=== PATIENT | female | born 1935 | race Caucasian/White ===

== ENCOUNTER 2017-01-14 16:48 | Emergency (ER) | payer BC, OTHER ==
[2017-01-14 16:52] VITALS: BMI 34.0
--- NOTE | 2017-01-14 17:51 | PDOC ---
History of Present Illness - General History Source: Patient Exam Limitations: No Limitations - History of Present Illness Initial Comments: 01/14/17 18:15 Patient is an 82 y.o. female with a PMH of Atrial Fibrillation (controlled on Amirodiarone) who presents to our facility today following a mechanical fall this evening while stepping onto an elevated sidewalk. Patient states she fell on to her right side, scraping her R knee and hitting her head on the R side near her temporal bone. Patient denies any LOC, nausea, vomiting or vertigo. ROS is positive for "lightheadedness" however no vertigo, blurry vision, nausea or vomiting. Patient also c/o of R lower leg abrasion. Occurred: reports: just prior to arrival Severity: reports: mild Pain Location: reports: head, lower extremity Method of Injury: Yes: fall <Rosi Amin - Last Filed: 01/14/17 18:43> <Ignacia Frey - Last Filed: 01/14/17 19:06> - General Chief Complaint: Injury Stated Complaint: FALL, LIGHTHEADED, on Plavix Time Seen by Provider: 01/14/17 17:30 Past History - Past Medical History Cardiac Disorders: Yes (afib) Diabetes: Yes HTN: Yes Hypercholesterolemia: Yes - Surgical History Cardiac Surgery: Yes (stents x 4) - Psycho/Social/Smoking Cessation Hx Suicidal Ideation: No Smoking History: Never smoked Information on smoking cessation initiated: No Hx Alcohol Use: No Drug/Substance Use Hx: No Substance Use Type: None <Rosi Amin - Last Filed: 01/14/17 18:43> <Ignacia Frey - Last Filed: 01/14/17 19:06> - Past Medical History Allergies/Adverse Reactions: Allergies Allergy/AdvReac Type Severity Reaction Status Date / Time No Known Allergies Allergy Verified 01/14/17 16:52 Home Medications: Ambulatory Orders Amiodarone HCl [Cordarone -] 200 mg PO DAILY 01/16/16 Aspirin [ASA -] 81 mg PO DAILY 01/16/16 Clopidogrel Bisulfate [Plavix -] 75 mg PO DAILY 01/16/16 Hydrochlorothiazide [Hctz -] 12.5 mg PO DAILY 01/16/16 Insulin Glargine,Hum.rec.anlog [Lantus Solostar PEN (NF)] 20 units SQ HS Levothyroxine [Synthroid -] 175 mcg PO DAILY 01/16/16 Losartan Potassium [Cozaar -] 50 mg PO DAILY 01/16/16 Rosuvastatin Calcium [Crestor] 10 mg PO DAILY 02/03/16 Metformin HCl 500 mg PO DAILY 01/14/17 Review of Systems - Review of Systems Cardiac (ROS): Yes: Irregular Heart Rate, Lightheadedness, Other (H/o AFib, controlled, on Amiodarone) ABD/GI: Yes: Constipated Musculoskeletal: Yes: Muscle Pain Integumentary: Yes: Other (RLE Abrasion) Neurological: Yes: Headache All Other Systems: Reviewed and Negative <Rosi Amin - Last Filed: 01/14/17 18:43> *Physical Exam - Vital Signs Last Vital Signs Temp Pulse Resp BP Pulse Ox 98 F 64 18 106/64 98 01/14/17 16:50 01/14/17 16:50 01/14/17 16:50 01/14/17 16:50 01/14/17 16:50 - Physical Exam General Appearance: Yes: Nourished, Appropriately Dressed HEENT: positive: EOMI, JS Neck: positive: Tender, Trachea midline, Supple Respiratory/Chest: positive: Lungs Clear, Normal Breath Sounds Cardiovascular: positive: Regular Rhythm, Regular Rate, S1, S2 Gastrointestinal/Abdominal: positive: Normal Bowel Sounds, Soft Integumentary: positive: Normal Color, Other (RLE ventral superficial abrasion ) Neurologic: positive: gear hobber set up operator II-XII NML intact, Fully Oriented, Alert, Motor Strength 5/5, Other (B/L LE strength 5/5) <Rosi Amin - Last Filed: 01/14/17 18:43> - Vital Signs Last Vital Signs Temp Pulse Resp BP Pulse Ox 98 F 64 18 106/64 98 01/14/17 16:50 01/14/17 16:50 01/14/17 16:50 01/14/17 16:50 01/14/17 16:50 <Ignacia Frey - Last Filed: 01/14/17 19:06> Medical Decision Making - Medical Decision Making Patient signed out to Dr. Jo Rosenberg - awaiting imaging <Rosi Amin - Last Filed: 01/14/17 18:43> *DC/Admit/Observation/Transfer <Rosi Amin - Last Filed: 01/14/17 18:43> <Ignacia Frey - Last Filed: 01/14/17 19:06> Diagnosis at time of Disposition: Abrasion, Traumatic injury of head - Discharge Dispostion Disposition: HOME Condition at time of disposition: Improved - Patient Instructions Printed Discharge Instructions: DI for Closed Head Injury Additional Instructions: take tylenol 500mg every 6 hours as needed for pain. return for any nausea, vomiting, weakness confusion or any concerns. you can apply bacitracin topical antiobiotics cream to your knee. you were given a tetanus shot today so you are up to date with your tetanus.
--- NOTE | 2017-01-14 18:04 | PDOC ---
Attending Attestation - Resident Resident Name: EloisaRosi - ED Attending Attestation I have performed the following: I have examined & evaluated the patient, The case was reviewed & discussed with the resident, I agree w/resident's findings & plan, Exceptions are as noted - HPI HPI: 01/14/17 17:59 82 yo F with h/o HTN DM HLD on asa and plavix s/p trip and fall today. was walking and missed a step. fell forward, hit head on concrete. no loc. no neck or bakc pain. c/o headache, lightheaded, and right knee pain. had abrasion to right knee. ambulating without difficulty. no other ext pain. no mod afctors. no n/v or weakness since fall. - Physicial Exam PE: 01/14/17 18:00 on exam pt awake alert . right eye brow, with small eccymosis EOMI, no step off. no mildline cervical spine tenderness. lungs CTAB no wheeze no crackles. heart RRR no m/r.g abd soft NT. ext : right knee superifical abrasion, FROM. no laxity. right hip FROM, pelvis stable. left hip NT FROM. bilat upper ext NT FROM. no midline spinal tenderness. 5/5 all four ext. GCS 15 - Medical Decision Making 01/14/17 18:02 82 s/p trip and fall, on asa and plavix. plan ct head r/o ich, xray knee , tetanus, tylenol for pain. bacitracin to abrasion
[2017-01-14] MEDS ORDERED: TETANUS IMMUNE GLOBULIN 250 UNITS DISP.SYRIN IM ONE (18:06)
[2017-01-14] MEDS ORDERED: ACETAMINOPHEN 325 MG TABLET (FP) PO ONE (18:14)
[2017-01-14] MEDS ORDERED: BACITRACIN 0.9 GM PACKET ONE (18:32)
[2017-01-14] MEDS ORDERED: ACETAMINOPHEN 325 MG TABLET (FP) ONE (19:07)
--- NOTE | 2017-01-14 19:44 | PDOC ---
*Physical Exam - Vital Signs Last Vital Signs Temp Pulse Resp BP Pulse Ox 98 F 64 18 106/64 98 01/14/17 16:50 01/14/17 16:50 01/14/17 16:50 01/14/17 16:50 01/14/17 16:50 <Bev Darden - Last Filed: 01/14/17 20:26> - Vital Signs Last Vital Signs Temp Pulse Resp BP Pulse Ox 98 F 64 18 106/64 98 01/14/17 16:50 01/14/17 16:50 01/14/17 16:50 01/14/17 16:50 01/14/17 16:50 - Physical Exam Comments: 01/14/17 19:[address] Amin at 1900. This is an 82 yo female with h/o A-fib on ASA and Plavix who had a GLF today without LOC but did hit her head and c/o temporal headache at 10/10. Also initially c/o BLE weakness but has been walking well to the bathroom here while in the ED, unremarkable BLE neuro exam. Day team ordered x-ray to eval right knee pain (+ overlying abrasions), unremarkable. Awaiting CT head wo contrast. Received Tylenol PO prior to signout and will reeval pain level. Patient reported relief of knee pain to the point where she feels comfortable with discharge home with . CT head shows no acute intracranial pathology. Neuro exam within normal limits. Agree with closed head injury, mechanical GLF, and knee abrasion dx. <Jo Rosenberg - Last Filed: 01/14/17 21:59> ED Treatment Course - Medications Given in the ED: ED Medications Discontinued Medications Generic Name Dose Route Start Last Admin Trade Name Satishq PRN Reason Stop Dose Admin Acetaminophen 650 mg 01/14/17 18:14 01/14/17 19:06 Tylenol - PO 01/14/17 18:15 650 mg ONCE ONE Administration Tetanus Immune Globulin 250 units 01/14/17 18:06 01/14/17 19:02 Hypertet S-D 250 Units Syringe - IM 01/14/17 18:07 250 units .ONCE ONE Administration <Bev Darden - Last Filed: 01/14/17 20:26> - RADIOLOGY Radiograph Interpretation: 01/14/17 19:54 Xray R knee: No acute fractures or dislocations. X-ray R hip and pelvis: No acute fractures or dislocations. Head CT wo contrast: no acute intracranial pathology, no ICH. - Medications Given in the ED: ED Medications Discontinued Medications Generic Name Dose Route Start Last Admin Trade Name Shabnam PRN Reason Stop Dose Admin Acetaminophen 650 mg 01/14/17 18:14 01/14/17 19:06 Tylenol - PO 01/14/17 18:15 650 mg ONCE ONE Administration Tetanus Immune Globulin 250 units 01/14/17 18:06 01/14/17 19:02 Hypertet S-D 250 Units Syringe - IM 01/14/17 18:07 250 units .ONCE ONE Administration <Jo Rosenberg - Last Filed: 01/14/17 21:59> *DC/Admit/Observation/Transfer <Bev Darden - Last Filed: 01/14/17 20:26> - Discharge Dispostion Admit: No - Attestations Scribe Attestion: 01/14/17 21:58 I, Dr. Jo Rosenberg, attest that this document has been prepared under my direction and personally reviewed by me in its entirety. I further attest, that it accurately reflects all work, treatment, procedures and medical decision -making performed by me. <Jo Rosenberg - Last Filed: 01/14/17 21:59> Diagnosis at time of Disposition: Abrasion Head trauma Qualifiers: Encounter type: initial encounter Qualified Code(s): S09.90XA - Unspecified injury of head, initial encounter - Discharge Dispostion Disposition: HOME Condition at time of disposition: Improved - Referrals Referrals: Herb Mckeon MD [Primary Care Provider] - - Patient Instructions Printed Discharge Instructions: DI for Closed Head Injury Additional Instructions: take tylenol 500mg every 6 hours as needed for pain. return for any nausea, vomiting, weakness confusion or any concerns. you can apply bacitracin topical antiobiotics cream to your knee. you were given a tetanus shot today so you are up to date with your tetanus. Print Language: CZECH - Post Discharge Activity
[2017-01-14 20:41] VITALS: BP 123/89; PULSE 74; TEMP 97.8
== END 2017-01-14 20:41 | disposition home or self-care (01) ==
LOC: JER 16:48
PROC: 3E023GC Introduction of Other Therapeutic Substance into Muscle, Percutaneous Approach (ICD-10-PCS; principal; 2017-01-14)
DX: S09.90XA Unspecified injury of head, initial encounter (principal); S80.811A Abrasion, right lower leg, initial encounter; S80.211A Abrasion, right knee, initial encounter; K59.00 Constipation, unspecified; E11.9 Type 2 diabetes mellitus without complications; I10 Essential (primary) hypertension; E78.00 Pure hypercholesterolemia, unspecified; I48.91 Unspecified atrial fibrillation; W18.39XA Other fall on same level, initial encounter; Y93.89 Activity, other specified; Y92.410 Unspecified street and highway as the place of occurrence of the external cause
CPT/HCPCS: 70450-TC; 72170-TC; 73560-TC-RT; 96372; 99282-25; J1670

== ENCOUNTER 2017-02-08 01:15 | Emergency (ER) | payer OTHER ==
[2017-02-08] MEDS ORDERED: SODIUM CHLORIDE 250 ML IV STA (01:40)
[2017-02-08] MEDS ORDERED: morphine CARPU-JECT 2 MG/1 ML DISP.SYRIN IVPUSH ONE (01:40)
[2017-02-08] MEDS ORDERED: ONDANSETRON 4 MG/2 ML VIAL IVPB ONE (01:40)
--- NOTE | 2017-02-08 02:09 | PDOC ---
History of Present Illness - General Stated Complaint: HEADACHE, DIZZINESS, NAUSEA Time Seen by Provider: 02/08/17 01:24 History Source: Patient, Significant Other Exam Limitations: No Limitations - History of Present Illness Initial Comments: 02/08/17 02:03 82yo Female patient w/ PmHx: IDDM, Afib/flutter-controlled with Amiodarone, HTN , 3 cardiac stents- on Plavix presents to ED c/o Headache, dizziness, nausea for past several days. Patient report January 14 she was seen in this ED for head injury and discharged to home. Patient reports since this incident, she has not felt the same. Last BM: Yesterday normal. Patient denies any other complaints at this time. Timing/Duration: constant Severity: moderate Modifying Factors: worse with: cold therapy, eating, immobilization, medication , movement, rest, other Associated Symptoms: reports: headaches, nausea/vomiting. denies: denies symptoms, chest pain, cough, diaphoresis, fever/chills, loss of appetite, malaise, rash, seizure, shortness of breath, syncope, weakness, other Aspirin Received prior to arrival: Yes: provided at home. No: no aspirin today , unknown, 81 mg x 1, 81 mg x 2, 81 mg x 3, 81 mg x 4, 325 mg x 1, provided by EMS, provided by ED [facility] Contraindications(Core Measure): Yes: Plavix. No: Allergy, Other, Active Blding w/i 24 hrs., Receiving Warfarin Past History - Travel Traveled outside of the country in the last 30 days: No Close contact w/someone who was outside of country & ill: No - Past Medical History Allergies/Adverse Reactions: Allergies Allergy/AdvReac Type Severity Reaction Status Date / Time No Known Allergies Allergy Verified 02/08/17 02:43 Home Medications: Ambulatory Orders Amiodarone HCl [Cordarone -] 200 mg PO DAILY 01/16/16 Aspirin [ASA -] 81 mg PO DAILY 01/16/16 Clopidogrel Bisulfate [Plavix -] 75 mg PO DAILY 01/16/16 Hydrochlorothiazide [Hctz -] 12.5 mg PO DAILY 01/16/16 Insulin Glargine,Hum.rec.anlog [Lantus Solostar PEN (NF)] 20 units SQ HS Levothyroxine [Synthroid -] 175 mcg PO DAILY 01/16/16 Losartan Potassium [Cozaar -] 50 mg PO DAILY 01/16/16 Rosuvastatin Calcium [Crestor] 10 mg PO DAILY 02/03/16 Metformin HCl 500 mg PO DAILY 01/14/17 Cephalexin Monohydrate [Keflex -] 500 mg PO BID #20 capsule 02/08/17 Cardiac Disorders: Yes (afib) Diabetes: Yes HTN: Yes Hypercholesterolemia: Yes - Surgical History Cardiac Surgery: Yes (stents x 4) - Psycho/Social/Smoking Cessation Hx Suicidal Ideation: No Smoking History: Never smoked Hx Alcohol Use: No Drug/Substance Use Hx: No Substance Use Type: None Review of Systems - Review of Systems Able to Perform ROS?: Yes Is the patient limited Welsh proficient: No Constitutional: Yes: Weakness. No: Chills, Fever Respiratory: No: Cough, Shortness of Breath, Wheezing Cardiac (ROS): No: Chest Pain, Lightheadedness, Palpitations, Syncope, Chest Tightness ABD/GI: Yes: Nausea. No: Constipated, Diarrhea, Poor Appetite, Poor Fluid Intake, Rectal Bleeding, Vomiting, Abdominal cramping : No: Burning, Dysuria, Frequency, Flank Pain, Hematuria Musculoskeletal: Yes: Back Pain (Chronic back pain) Integumentary: No: Bruising, Erythema, Rash, Sweating Neurological: Yes: Headache, Weakness. No: Numbness, Paresthesia, Seizure, Tremors, Unsteady Gait, Ataxia, Dizziness All Other Systems: Reviewed and Negative *Physical Exam - Physical Exam General Appearance: Yes: Nourished, Appropriately Dressed. No: Apparent Distress, Mild Distress, Moderate Distress, Severe Distress HEENT: positive: EOMI, JS, Normal ENT Inspection, Normal Voice, Symmetrical, TMs Normal, Pharynx Normal. negative: Pharyngeal Erythema, Tonsillar Exudate, Tonsillar Erythema, Nasal Congestion, Rhinorrhea, Sinus Tenderness, TM Bulging, TM Dull, TM Erythema Neck: positive: Trachea midline, Supple. negative: Lymphadenopathy (R), Lymphadenopathy (L), Rigidity, Tender lateral, Tender midline Respiratory/Chest: positive: Lungs Clear, Normal Breath Sounds. negative: Chest Tender, Respiratory Distress, Accessory Muscle Use, Labored Respiration, Rapid RR, Rhonchi, Stridor, Wheezing Cardiovascular: positive: Regular Rhythm, Regular Rate Gastrointestinal/Abdominal: positive: Soft, Increased Bowel Sounds, Distended. negative: Tender, Guarding, Rebound, Tenderness Musculoskeletal: positive: Normal Inspection, Decreased Range of Motion. negative: CVA Tenderness, Vertebral Tenderness Extremity: positive: Normal Capillary Refill, Normal Inspection, Normal Range of Motion. negative: Pedal Edema, Swelling, Calf Tenderness, Erythema Integumentary: positive: Normal Color, Dry, Warm. negative: Erythema, Rash, Swelling Neurologic: positive: copy operator II-XII NML intact, Fully Oriented, Alert, Normal Mood/ Affect, Normal Response, Motor Strength 11/12 ED Treatment Course - LABORATORY CBC & Chemistry Diagram: 02/08/17 02:00 02/08/17 02:00 - RADIOLOGY Radiology Studies Ordered: Category Date Time Status HEAD CT WITHOUT CONTRAST [CT] Stat CT Scan 02/08/17 01:40 Ordered CHEST PA & LAT [RAD] Stat Radiology 02/08/17 01:40 Ordered *DC/Admit/Observation/Transfer Diagnosis at time of Disposition: Urinary tract infection Qualifiers: Urinary tract infection type: site unspecified Hematuria presence: without hematuria Qualified Code(s): N39.0 - Urinary tract infection, site not specified - Discharge Dispostion Disposition: HOME Condition at time of disposition: Stable Admit: No - Prescriptions Prescriptions: Cephalexin Monohydrate [Keflex -] 500 mg PO BID #20 capsule - Patient Instructions Printed Discharge Instructions: Urinary Tract Infection Additional Instructions: Follow up with your primary care provider. Take medications as prescribed. Drink plenty water. Rest. Print Language: SLOVAK
[2017-02-08 02:12] LABS: BASOPHIL 0.9 % (0-2.0); EOSINOPHIL 1.8 % (0-4.5); MCH 31.3 pg (25.7-33.7); MCHC 33.8 g/dl (32.0-36.0); MEAN CELL VOLUME 92.6 fl (80-96); MEAN PLT VOLUME 8.5 fl (7.5-11.1); NEUTROPHILS 62.9 % (42.8-82.8); PLATELET COUNT 170 K/MM3 (134-434); RDW 14.7 % (11.6-15.6); WHITE BLOOD COUNT 6.2 K/mm3 (4.0-10.0)
[2017-02-08 02:25] LABS: INR 1.09 (0.82-1.09)
[2017-02-08 02:39] LABS: URINE APPEARANCE CLOUDY; URINE BILIRUBIN NEGATIVE (NEGATIVE); URINE BLOOD NEGATIVE (NEGATIVE); URINE COLOR AMBER; URINE GLUCOSE (UA) NEGATIVE (NEGATIVE); URINE KETONE NEGATIVE (NEGATIVE); URINE NITRITE POSITIVE (NEGATIVE); URINE PROTEIN NEGATIVE (NEGATIVE); URINE UROBILINOGEN NEGATIVE mg/dL (0.2-1.0)
[2017-02-08 02:40] VITALS: TEMP 98.7; BMI 30.2
[2017-02-08 02:41] LABS: URINE LEUK ESTERASE 3+ (NEGATIVE)
[2017-02-08] MEDS ORDERED: morphine CARPU-JECT 4 MG/1 ML DISP.SYRIN ONE (02:53)
[2017-02-08] MEDS ORDERED: ONDANSETRON 4 MG/2 ML VIAL ONE (02:54)
[2017-02-08 02:56] LABS: URINE MUCUS RARE; URINE WBC 34 /hpf (3-5)
[2017-02-08 03:00] LABS: ALBUMIN 3.4 g/dl (3.4-5.0); ANION GAP 10 (8-16); BILIRUBIN,TOTAL 0.3 mg/dL (0.2-1.0); CALCIUM 8.7 mg/dL (8.5-10.1); CO2 30 mmol/L (21-32); CPK 116 IU/L (26-192); GLUCOSE,RANDOM 158 mg/dL (74-106); SGOT/AST 19 U/L (15-37); SGPT/ALT 34 U/L (12-78); TOT PROT 6.7 g/dl (6.4-8.2)
[2017-02-08 03:02] LABS: ALK PHOS 66 U/L (45-117); TROPONIN I < 0.02 ng/ml (0.00-0.05)
[2017-02-08] MEDS ORDERED: CEPHALEXIN MONOHYDRATE 500 MG CAPSULE (UD) PO ONE (04:12)
[2017-02-08] MEDS ORDERED: CEPHALEXIN MONOHYDRATE 250 MG CAPSULE (FP) ONE (04:20)
[2017-02-08 04:48] VITALS: BP 142/87; PULSE 76
--- NOTE | 2017-02-08 12:22 | EKG ---
Test Reason : Blood Pressure : / mmHG Vent. Rate : 061 BPM Atrial Rate : 277 BPM P-R Int : 000 ms QRS Dur : 090 ms QT Int : 380 ms P-R-T Axes : 083 -37 123 degrees QTc Int : 382 ms ATRIAL FLUTTER WITH VARIABLE A-V BLOCK LEFT AXIS DEVIATION CONSISTANT WITH LAFB POSSIBLE ANTERIOR INFARCT (CITED ON OR BEFORE 16-JAN-2016) ABNORMAL ECG WHEN COMPARED WITH ECG OF 16-JAN-2016 00:12, QUESTIONABLE CHANGE IN INITIAL FORCES OF ANTERIOR LEADS T WAVE INVERSION NO LONGER EVIDENT IN ANTERIOR LEADS QT HAS SHORTENED REPEAT EKG IF CLINICALLY INDICATED Confirmed by DAVY SILVERMAN MD ([id number]) on 02/08/2017 12:22:04 PM Referred By: Confirmed By:DAVY SILVERMAN MD
== END 2017-02-08 04:46 | disposition home or self-care (01) ==
LOC: JER 01:15
PROC: 3E033NZ Introduction of Analgesics, Hypnotics, Sedatives into Peripheral Vein, Percutaneous Approach (ICD-10-PCS; principal; 2017-02-08)
PROC: 3E033GC Introduction of Other Therapeutic Substance into Peripheral Vein, Percutaneous Approach (ICD-10-PCS; 2017-02-08)
DX: N39.0 Urinary tract infection, site not specified (principal); I25.10 Atherosclerotic heart disease of native coronary artery without angina pectoris; I10 Essential (primary) hypertension; Z95.5 Presence of coronary angioplasty implant and graft; I48.91 Unspecified atrial fibrillation; Z79.01 Long term (current) use of anticoagulants; E11.9 Type 2 diabetes mellitus without complications; Z79.4 Long term (current) use of insulin
CPT/HCPCS: 36415; 70450-TC; 71020-TC; 80053; 81003; 81015; 84484; 85025; 85610; 93005; 93010; 96374; 96375; 99281-25

== ENCOUNTER 2017-08-30 09:31 | Emergency (ER) | payer OTHER ==
[2017-08-30 09:45] VITALS: TEMP 98.8; BMI 31.9
--- NOTE | 2017-08-30 10:27 | PDOC ---
History of Present Illness - General Chief Complaint: Pain, Acute Stated Complaint: BODYACHES Time Seen by Provider: 08/30/17 10:25 - History of Present Illness Initial Comments: 08/30/17 10:29 82yo Female patient w/ PmHx: IDDM, Afib/flutter-controlled with Amiodarone, HTN , 3 cardiac stents- on Plavix presents to ED with upper and lower left quandrant abdominal pain for 2 days, 9/10, gen body aches and nausea for the past 2 weeks. Pain upon waking up today was worse than any other day. Lost 15lbs in a month. Blood glucose in controlled in the 150's. Denies vomiting, constipation or diarrhea Saw Dr. Chauhan last week who told her she would get a barium xray PCP: Dr. Mckeon Past History - Past Medical History Allergies/Adverse Reactions: Allergies Allergy/AdvReac Type Severity Reaction Status Date / Time No Known Allergies Allergy Verified 08/30/17 09:42 Home Medications: Ambulatory Orders Amiodarone HCl [Cordarone -] 200 mg PO DAILY 01/16/16 Aspirin [ASA -] 81 mg PO DAILY 01/16/16 Clopidogrel Bisulfate [Plavix -] 75 mg PO DAILY 01/16/16 Hydrochlorothiazide [Hctz -] 12.5 mg PO DAILY 01/16/16 Insulin Glargine,Hum.rec.anlog [Lantus Solostar PEN (NF)] 20 units SQ HS Levothyroxine [Synthroid -] 175 mcg PO DAILY 01/16/16 Losartan Potassium [Cozaar -] 50 mg PO DAILY 01/16/16 Rosuvastatin Calcium [Crestor] 10 mg PO DAILY 02/03/16 Metformin HCl 500 mg PO DAILY 01/14/17 Atorvastatin Ca [Lipitor] 80 mg PO HS 08/30/17 Cardiac Disorders: Yes (afib) COPD: No Diabetes: Yes HTN: Yes Hypercholesterolemia: Yes - Surgical History Cardiac Surgery: Yes (stents x 4) - Suicide/Smoking/Psychosocial Hx Smoking History: Never smoked Hx Alcohol Use: No Drug/Substance Use Hx: No Substance Use Type: None Review of Systems - Review of Systems Constitutional: Yes: See HPI HEENTM: No: Symptoms Reported Respiratory: No: Symptoms reported Cardiac (ROS): No: Symptoms Reported ABD/GI: Yes: See HPI, Abdominal Distended, Nausea. No: Abd. Pain w/ defecation , Blood Streaked Bowels, Constipated, Diarrhea, Difficulty Swallowing, Poor Appetite, Poor Fluid Intake, Rectal Bleeding : No: Symptoms Reported Musculoskeletal: No: Symptoms Reported Integumentary: No: Symptoms Reported Neurological: No: Symptoms reported All Other Systems: Reviewed and Negative *Physical Exam - Vital Signs Last Vital Signs Temp Pulse Resp BP Pulse Ox 98.8 F 83 19 119/76 95 08/30/17 09:42 08/30/17 09:42 08/30/17 09:42 08/30/17 09:42 08/30/17 09:42 - Physical Exam General Appearance: Yes: Nourished, Appropriately Dressed. No: Apparent Distress HEENT: positive: EOMI, JS, Normal ENT Inspection Respiratory/Chest: positive: Lungs Clear, Normal Breath Sounds. negative: Chest Tender, Respiratory Distress Cardiovascular: positive: Regular Rhythm, Regular Rate, S1, S2 Gastrointestinal/Abdominal: positive: Normal Bowel Sounds, Tender (Upper and lower left quandrant), Soft, Distended, Guarding Extremity: positive: Normal Capillary Refill, Normal Inspection, Normal Range of Motion Integumentary: positive: Normal Color, Dry, Warm Neurologic: positive: Fully Oriented, Alert, Normal Mood/Affect, Normal Response ED Treatment Course - LABORATORY CBC & Chemistry Diagram: 08/30/17 11:53 08/30/17 11:53 Medical Decision Making - Medical Decision Making 08/30/17 11:00 gastroparesis vs constipation vs obstruction Will send for labs and imaging 08/30/17 13:55 EKG: Atrial flutter with variable AV blck left axis deviation nonstpecific st and t abnormality Prolonged QT 08/30/17 18:30 Patient have left nephrolithiasis. Fluid, tramadol. ok to dc with follow up *DC/Admit/Observation/Transfer Diagnosis at time of Disposition: Left nephrolithiasis - Discharge Dispostion Disposition: HOME Condition at time of disposition: Improved Admit: No - Referrals - Patient Instructions Printed Discharge Instructions: Kidney Stones -- Adult Additional Instructions: Come back to the Er for any new, worsening or concerning symptom. Follow up with your primary care provider within 1-3 days. - Post Discharge Activity
--- NOTE | 2017-08-30 11:58 | PDOC ---
Attending Attestation - Resident Resident Name: Hermann Mcgill - ED Attending Attestation I have performed the following: I have examined & evaluated the patient, The case was reviewed & discussed with the resident, I agree w/resident's findings & plan, Exceptions are as noted <KingMary - Last Filed: 08/30/17 11:58> - HPI HPI: 08/30/17 13:02 The patient is a 82 year old female with a significant PMH of IDDM, Afib/ flutter controlled with Amiodarone, HTN, and 3 cardiac stents (on Plavix) who presents to the emergency department with LUQ and LLQ abdominal pain that began approximately 2 days ago. The patient describes the abdominal pain as a 9/10 and is also complaining of associated body aches and nausea. The patient states she lost 15 lbs within a month. The patient denies chest pain, shortness of breath, headache and dizziness. Denies fever, chills, vomit, diarrhea and constipation. Denies dysuria, frequency, urgency and hematuria. Allergies: NKA Past surgical history: None reported. Social history: No reported alcohol, drug, or cigarette use. PCP: Dr. Mckeon GI: Dr. Chauhan <Flores Sewell - Last Filed: 08/30/17 16:08>
[2017-08-30 12:58] LABS: BASO % 0.6 % (0-2.0); EOS % 0.7 % (0-4.5); HEMATOCRIT 36.8 % (32.4-45.2); HEMOGLOBIN 12.3 GM/dL (10.7-15.3); LYMPH % 8.8 % (8-40); MCH 31.3 pg (25.7-33.7); MCHC 33.5 g/dl (32.0-36.0); MEAN CELL VOLUME 93.6 fl (80-96); MEAN PLT VOLUME 8.9 fl (7.5-11.1); MONO % 13.8 % (3.8-10.2); NEUT % 76.1 % (42.8-82.8); PLATELET COUNT 189 K/MM3 (134-434); RBC 3.93 M/mm3 (3.60-5.2); RDW 14.7 % (11.6-15.6); WHITE BLOOD COUNT 4.3 K/mm3 (4.0-10.0)
[2017-08-30 13:15] LABS: ALBUMIN 3.8 g/dl (3.4-5.0); ANION GAP 12 (8-16); BILIRUBIN,TOTAL 0.7 mg/dL (0.2-1.0); BLOOD UREA NITROGEN 12 mg/dL (7-18); CALCIUM 8.9 mg/dL (8.5-10.1); CHLORIDE 94 mmol/L (98-107); CO2 27 mmol/L (21-32); CREATININE 0.9 mg/dL (0.55-1.02); GLUCOSE,RANDOM 162 mg/dL (74-106); LIPASE 93 U/L (73-393); SGPT/ALT 43 U/L (12-78); SODIUM 133 mmol/L (136-145); TOT PROT 7.8 g/dl (6.4-8.2)
[2017-08-30 13:18] LABS: ALK PHOS 71 U/L (45-117)
[2017-08-30 13:19] LABS: POTASSIUM 4.4 mmol/L (3.5-5.1); SGOT/AST 50 U/L (15-37)
[2017-08-30] MEDS ORDERED: ACETAMINOPHEN 1000 MG/100 ML VIAL (NON FORMULARY) IVPB ONE (13:20)
[2017-08-30 13:27] LABS: URINE APPEARANCE SLCLOUDY; URINE BILIRUBIN NEGATIVE (NEGATIVE); URINE BLOOD NEGATIVE (NEGATIVE); URINE COLOR YELLOW; URINE GLUCOSE (UA) NEGATIVE (NEGATIVE); URINE KETONE TRACE (NEGATIVE); URINE LEUK ESTERASE NEGATIVE (NEGATIVE); URINE NITRITE NEGATIVE (NEGATIVE); URINE PROTEIN NEGATIVE (NEGATIVE); URINE UROBILINOGEN NEGATIVE mg/dL (0.2-1.0)
[2017-08-30] MEDS ORDERED: ACETAMINOPHEN INJECTION 100 ML IVPB ONE (13:27)
[2017-08-30 13:43] VITALS: BP 127/64; PULSE 94
[2017-08-30] MEDS ORDERED: SODIUM CHLORIDE 1,000 ML IV STA (13:49)
[2017-08-30] MEDS ORDERED: traMADol HCL 50 MG TABLET PO ONE (17:03)
[2017-08-30] MEDS ORDERED: traMADol HCL 50 MG TABLET ONE ×2 (18:54→19:03)
--- NOTE | 2017-08-31 17:11 | EKG ---
Test Reason : Blood Pressure : / mmHG Vent. Rate : 085 BPM Atrial Rate : 264 BPM P-R Int : 000 ms QRS Dur : 086 ms QT Int : 420 ms P-R-T Axes : 078 -41 106 degrees QTc Int : 499 ms ATRIAL FLUTTER WITH VARIABLE A-V BLOCK LEFT AXIS DEVIATION NONSPECIFIC ST AND T WAVE ABNORMALITY PROLONGED QT ABNORMAL ECG WHEN COMPARED WITH ECG OF 08-FEB-2017 01:41, NONSPECIFIC T WAVE ABNORMALITY NO LONGER EVIDENT IN INFERIOR LEADS QT HAS LENGTHENED Confirmed by CHETAN CONDON MD ([id number]) on 08/31/2017 5:10:26 PM Referred By: Confirmed By:CHETAN CONDON MD
== END 2017-08-30 21:15 | disposition home or self-care (01) ==
LOC: JER 09:31
PROC: 3E0337Z Introduction of Electrolytic and Water Balance Substance into Peripheral Vein, Percutaneous Approach (ICD-10-PCS; principal; 2017-08-30)
PROC: 3E033NZ Introduction of Analgesics, Hypnotics, Sedatives into Peripheral Vein, Percutaneous Approach (ICD-10-PCS; 2017-08-30)
DX: N20.0 Calculus of kidney (principal); I25.10 Atherosclerotic heart disease of native coronary artery without angina pectoris; I10 Essential (primary) hypertension; Z95.5 Presence of coronary angioplasty implant and graft; I48.91 Unspecified atrial fibrillation; Z79.01 Long term (current) use of anticoagulants; E11.9 Type 2 diabetes mellitus without complications; Z79.84 Long term (current) use of oral hypoglycemic drugs
CPT/HCPCS: 36415; 74177-TC; 80053; 81003; 82550; 83605; 83690; 84484; 85025; 93005; 93010; 96361; 96374; 99284-25

== ENCOUNTER 2018-01-26 02:59 | Inpatient (IN) | payer OTHER ==
[2018-01-26 03:15] VITALS: BMI 30.2
[2018-01-26] MEDS ORDERED: METOCLOPRAMIDE HCL INJECTION 10 MG/2 ML VIAL IVPUSH ONE (03:30)
--- NOTE | 2018-01-26 03:31 | PDOC ---
Attending Attestation - [facility] HPI: 01/26/18 05:22 The patient is a 83 year old female with a past medical history of diabetes, Afib, HTN, HLD, and 4 cardiac stents who presents to the emergency department for evaluation of chest pain. The patient reports moderate chest pain beginning yesterday afternoon. She describes the chest pain as pleuritic, radiating to the epigastrium. Pt reports associated neck pain, posterior headache, nausea, and vomiting. The patient denies facial weakness, sensory changes, history of blood clots, lower extremity swelling, and dizziness. Denies fever, chills, and any bowel/urinary symptoms. Allergies: NKA Past surgical history: None reported. Social history: No reported alcohol, drug, or cigarette use. PCP: Dr. Shimon Giraldo Car Customizer: Dr. Toledo - Physicial Exam PE: General Appearance: Yes: Appropriately Dressed. No: Apparent Distress, Intoxicated HEENT: positive: EOMI, JS, Normal ENT Inspection, Normal Voice, TMs Normal, Pharynx Normal. negative: Pale Conjunctivae, Photophobia, Scleral Icterus (R), Scleral Icterus (L) Neck: positive: Trachea midline, Normal Thyroid, Supple. negative: Tender, Rigid, Carotid bruit, Stridor, Lymphadenopathy (R), Lymphadenopathy (L), Thyromegaly Respiratory/Chest: positive: Lungs Clear, Normal Breath Sounds. negative: Chest Tender, Respiratory Distress, Accessory Muscle Use, Labored Respiration, RES, Crackles, Rales, Rhonchi, Stridor, Wheezing, Dullness Cardiovascular: positive: Regular Rhythm, Regular Rate, S1, S2. negative: Edema , JVD, Murmur, Bradycardia, Tachycardia Vascular Pulses: Dorsalis-Pedis (R): 2+, Doralis-Pedis (L): 2+ Gastrointestinal/Abdominal: positive: Epigastric tenderness. Normal Bowel Sounds , Flat, Soft. negative: Organomegaly, Pulsatile Mass, Increased Bowel Sounds, Decreased BS, Distended, Guarding, Rebound, Hernia, Hepatomegaly, Spleenomegaly Lymphatic: negative: Adenopathy, Tenderness Musculoskeletal: positive: Normal Inspection. negative: CVA Tenderness, Decreased Range of Motion Extremity: positive: Normal Capillary Refill, Normal Inspection, Normal Range of Motion, Pelvis Stable. negative: Tender, Pedal Edema, Swelling, Erythema Integumentary: positive: Normal Color, Dry, Warm. negative: Cyanotic, Erythema , Jaundice, Rash Neurologic: positive: billing supervisor II-XII NML intact, Fully Oriented, Alert, Normal Mood/ Affect, Motor Strength 5/5. negative: EOM Palsy, Facial Droop, Sensory Deficit <Brendan Alvarez - Last Filed: 01/26/18 06:45> - Resident Resident Name: Yuri Palma - ED Attending Attestation I have performed the following: I have examined & evaluated the patient, The case was reviewed & discussed with the resident, I agree w/resident's findings & plan, Exceptions are as noted - Medical Decision Making 01/26/18 19:49 Pt admitted for further evaluation and care <Kalpesh Rose - Last Filed: 01/26/18 19:49> Attestations - Attestations Documentation prepared by Brendan Alvarez, acting as medical or surgical instrument maker for Kalpesh Rose DO. <Brendan Alvarez - Last Filed: 01/26/18 06:45>
[2018-01-26] MEDS ORDERED: METOCLOPRAMIDE HCL INJECTION 10 MG/2 ML VIAL ONE (03:39)
[2018-01-26] MEDS ORDERED: ALBUTEROL SO4 2.5/IPRATROPIUM 0.5 INH SOL 3 ML VIAL.NEB. NEB ONE (03:42)
[2018-01-26 03:44] LABS: INR 1.07 (0.82-1.09); PROTHROMBIN TIME (PATIENT) 12.1 SEC (9.7-13.0)
[2018-01-26 03:45] LABS: BASO % 0.9 % (0-2.0); EOS % 3.9 % (0-4.5); HEMATOCRIT 29.8 % (32.4-45.2); HEMOGLOBIN 10.3 GM/dL (10.7-15.3); LYMPH % 35.5 % (8-40); MCH 31.9 pg (25.7-33.7); MCHC 34.7 g/dl (32.0-36.0); MEAN PLT VOLUME 8.6 fl (7.5-11.1); NEUT % 48.7 % (42.8-82.8); PLATELET COUNT 178 K/MM3 (134-434); RBC 3.24 M/mm3 (3.60-5.2); RDW 13.8 % (11.6-15.6); WHITE BLOOD COUNT 3.7 K/mm3 (4.0-10.0)
[2018-01-26 03:55] LABS: ALBUMIN 3.7 g/dl (3.4-5.0); ANION GAP 9 (8-16); BILIRUBIN,TOTAL 0.6 mg/dL (0.2-1.0); BLOOD UREA NITROGEN 16 mg/dL (7-18); CALCIUM 8.1 mg/dL (8.5-10.1); CHLORIDE 89 mmol/L (98-107); CO2 28 mmol/L (21-32); CREATININE 0.9 mg/dL (0.55-1.02); GLUCOSE,RANDOM 106 mg/dL (74-106); POTASSIUM 3.7 mmol/L (3.5-5.1); SGOT/AST 17 U/L (15-37); SGPT/ALT 25 U/L (12-78); SODIUM 126 mmol/L (136-145); TOT PROT 6.8 g/dl (6.4-8.2)
[2018-01-26 03:57] LABS: ALK PHOS 58 U/L (45-117)
--- NOTE | 2018-01-26 03:57 | PDOC ---
History of Present Illness - General Chief Complaint: Chest Pain Stated Complaint: CHEST PAIN Time Seen by Provider: 01/26/18 03:07 History Source: Patient Exam Limitations: No Limitations - History of Present Illness Initial Comments: 01/26/18 03:44 Patient is an 83F with history of IDDM, HTN, HLD, and CAD s/p stenting x4 here today complaining of 12 hours of chest pain. Patient endorses associated nausea , vomiting, neck pain and headache. Patient states that she has headaches regularly, but this one is worse than her prior headaches. The headache was slow in onset. Patient describes the chest pain along her lower sternum as a pressure and it is worsened with exertion, inspiration and rest. She denies having any sick contacts. She denies leg swelling and prior blood clots. She describes her neck pain as both in her posterior and anterior left lateral neck. Denies fevers, chills. Past History - Past Medical History Allergies/Adverse Reactions: Allergies Allergy/AdvReac Type Severity Reaction Status Date / Time No Known Allergies Allergy Verified 01/26/18 03:15 Home Medications: Ambulatory Orders Aspirin [ASA -] 81 mg PO DAILY 01/16/16 Clopidogrel Bisulfate [Plavix -] 75 mg PO DAILY 01/16/16 Hydrochlorothiazide [Hctz -] 12.5 mg PO DAILY 01/16/16 Insulin Glargine,Hum.rec.anlog [Lantus Solostar PEN (NF)] 20 units SQ HS Levothyroxine [Synthroid -] 150 mcg PO DAILY 01/16/16 Losartan Potassium [Cozaar -] 50 mg PO DAILY 01/16/16 metFORMIN HCL [Metformin HCl] 500 mg PO TID 01/14/17 Atorvastatin Ca [Lipitor] 40 mg PO HS 08/30/17 Alpha Lipoic Acid 200 mg PO DAILY 01/26/18 Ascorbic Acid [Vitamin C -] 500 mg PO BID 01/26/18 Cholecalciferol (Vitamin D3) [Vitamin D] 2,000 unit PO TID 01/26/18 Collagen, Hydrolysate (Bovine) [Collagen Hydrolysate] 1 gm MC ASDIR 01/26/18 Cranberry 500 mg PO DAILY 01/26/18 Cyanocobalamin [Vitamin B12 -] 500 mcg PO ASDIR 01/26/18 Flaxseed Oil [Flaxseed] 1,000 mg PO DAILY 01/26/18 Folic Acid 0.8 mg PO BID 01/26/18 Magnesium Oxide [Magnesium] 400 mg PO DAILY 01/26/18 Metoprolol Succinate [Toprol Xl -] 25 mg PO DAILY 01/26/18 Oxycodone HCl 5 mg PO ONCE 01/26/18 Pantoprazole Sodium [Protonix -] 40 mg PO DAILY 01/26/18 Ubidecarenone/Vit E Acet [Co Q-10 100 mg Softgel] 1 each PO DAILY 01/26/18 Vit B Comp/C/Folic/Iron/Vit E [Vitamin B Complex Tablet] 1 each PO DAILY Vitamin D3/Vitamin K2 (Mk4) [K2 Plus D3 Tablet] 1 each PO DAILY 01/26/18 Cardiac Disorders: Yes (afib) COPD: No Diabetes: Yes HTN: Yes Hypercholesterolemia: Yes - Surgical History Cardiac Surgery: Yes (stents x 4) - Suicide/Smoking/Psychosocial Hx Smoking History: Never smoked Have you smoked in the past 12 months: No Information on smoking cessation initiated: No Hx Alcohol Use: No Drug/Substance Use Hx: No Substance Use Type: None Review of Systems - Review of Systems Comments:: 01/26/18 03:58 GENERAL/CONSTITUTIONAL: No fever or chills. No weakness. HEAD, EYES, EARS, NOSE AND THROAT: No change in vision. No sore throat. CARDIOVASCULAR: +chest pain +shortness of breath RESPIRATORY: No cough, wheezing, or hemoptysis. GASTROINTESTINAL: + nausea, +vomiting. Negative for diarrhea or constipation. GENITOURINARY: No dysuria, frequency, or change in urination. MUSCULOSKELETAL: No joint or muscle swelling or pain. No neck or back pain. SKIN: No rash NEUROLOGIC: +headache. Negative for vertigo, loss of consciousness, or change in strength/sensation. ENDOCRINE: No increased thirst. No abnormal weight change HEMATOLOGIC/LYMPHATIC: No anemia, easy bleeding, or history of blood clots. ALLERGIC/IMMUNOLOGIC: No hives or skin allergy. *Physical Exam - Vital Signs Last Vital Signs Temp Pulse Resp BP Pulse Ox 98.7 F 75 18 175/80 100 01/26/18 03:12 01/26/18 03:12 01/26/18 03:12 01/26/18 03:12 01/26/18 03:12 - Physical Exam Comments: 01/26/18 04:00 GENERAL: Awake, alert, and fully oriented, in no acute distress HEAD: No signs of trauma, normocephalic, atraumatic EYES: PERRLA, EOMI, sclera anicteric, conjunctiva clear ENT: Auricles normal inspection, hearing grossly normal, nares patent, oropharynx clear without exudates. Moist mucosa NECK: Normal ROM, supple, no lymphadenopathy, JVD, or masses, no bruits LUNGS: No distress, speaks full sentences, scattered wheezes bilaterally HEART: Regular rate and rhythm, normal S1 and S2, no murmurs, rubs or gallops, peripheral pulses normal and equal bilaterally. ABDOMEN: Soft, +epigastric tenderness. No guarding, no rebound. No masses EXTREMITIES: Normal inspection, Normal range of motion, no edema. No clubbing or cyanosis. NEUROLOGICAL: Cranial nerves II through XII grossly intact. Normal speech, no focal sensorimotor deficits SKIN: Warm, Dry, normal turgor, no rashes or lesions noted. Heart Score/ECG Review - History History: Slightly suspicious - Electrocardiogram EKG: Normal - Age Age: >/= 65 - Risk Factors Risk Factors Heart Score: Yes Hx Hypercholesterolemia, Yes Hx Hypertension, Yes Hx Diabetes Based on the list above the patient has:: >/=3 risk factors or Hx atherosclerotic disease - Troponin Troponin: </= normal limit - Score Heart Score - Total: 4 ED Treatment Course - LABORATORY CBC & Chemistry Diagram: 01/26/18 03:30 01/26/18 03:23 - RADIOLOGY Radiology Studies Ordered: Category Date Time Status HEAD CT WITHOUT CONTRAST [CT] Stat CT Scan 01/26/18 03:30 Ordered NECK CTA [CT] Stat CT Scan 01/26/18 03:30 Ordered CHEST X-RAY PORTABLE* [RAD] Stat Radiology 01/26/18 03:30 Ordered - Medications Given in the ED: ED Medications Discontinued Medications Generic Name Dose Route Start Last Admin Trade Name Freq PRN Reason Stop Dose Admin Metoclopramide HCl 10 mg 01/26/18 03:30 01/26/18 03:42 Reglan Injection - IVPUSH 01/26/18 03:31 10 mg ONCE ONE Administration Medical Decision Making - Medical Decision Making 01/26/18 04:00 Patient is 83F with history of IDDM, HTN, HLD, CAD s/p stenting x4 here today complaining of chest pain, headache and neck pain. Vital signs stable. DDx includes, but is not limited to: ACS, migraine, intracranial mass, carotid dissection, arrhythmia, gastritis. Will treat headache and vomiting with reglan and tylenol. Will evaluate with cardiac labs, ekg, head ct, neck cta. EKG shows sinus bradycardia with 1st degree av block (SC 264) with rate of 57bpm. No st elevations/depressions. No significant t wave abnormalities. Leftward axis. 01/26/18 04:04 Laboratory Tests 01/26/18 01/26/18 03:23 03:30 WBC 3.7 L Hgb 10.3 L Plt Count 178 Sodium 126 L BUN 16 Creatinine 0.9 Troponin I 0.02 CBC reassuring. CMP shows hyponatremia. Troponin detectable to 0.02, but below threshold. 01/26/18 04:59 Patient reassessed, wheezing has cleared, patient is coughing more while I am at bedside. Remains hypertensive. Not tachypneic, breathing easily. Still has headache. Pending CT reads and CXR. 01/26/18 05:41 CXR shows evidence of CHF. Patient is hypertensive but respiratory status is stable. Will call Dr Giraldo at 6am for admission. *DC/Admit/Observation/Transfer Diagnosis at time of Disposition: Chest pain - Discharge Dispostion Condition at time of disposition: Stable Decision to Admit order: Yes - Referrals Referrals: Shimon Giraldo MD [Primary Care Provider] - - Patient Instructions - Post Discharge Activity
--- NOTE | 2018-01-26 07:57 | HP ---
Admitting History and Physical - Primary Care Physician PCP: Shimon Giraldo - Admission Chief Complaint: headaches History of Present Illness: developed sever headache yesterday evening with associated chest tightness and dyspnea, took one of husbands percocet to relieve pain. has long history of headaches, takes daily tylenol and occasional at least once weekly naproxen for headaches for years. pain is non specific, has associated nausea and lightheadedness, no photophobia , at times sharp, stabbing, but mostly dull lasting for days at a time. History Source: Patient Limitations to Obtaining History: No Limitations - Past Medical History Cardiovascular: Yes: AFIB (h/o afib, s/p cardioversion in 2014 not on ac since) , CAD (4 stents, card.cath on 2009, 2014, ), HTN, Hyperlipdemia Musculoskeletal: Yes: Chronic low back pain Endocrine: Yes: Diabetes Mellitus (insulin dependent for 30 years) - Past Surgical History Past Surgical History: Yes: Appendectomy (1984), Arthrosocopy (rotator cuff repair on left), Cholecystectomy (1989), Hysterectomy (with bso 1984 for fibroid uterus) - Smoking History Smoking history: Never smoked Have you smoked in the past 12 months: No - Alcohol/Substance Use Hx Alcohol Use: No History of Substance Use: reports: None - Social History Usual Living Arrangement: Yes: With Spouse ADL: Independent History of Recent Travel: No Home Medications - Allergies Allergies/Adverse Reactions: Allergies Allergy/AdvReac Type Severity Reaction Status Date / Time No Known Allergies Allergy Verified 01/26/18 03:15 - Home Medications Home Medications: Ambulatory Orders Aspirin [ASA -] 81 mg PO DAILY 01/16/16 Clopidogrel Bisulfate [Plavix -] 75 mg PO DAILY 01/16/16 Hydrochlorothiazide [Hctz -] 12.5 mg PO DAILY 01/16/16 Insulin Glargine,Hum.rec.anlog [Lantus Solostar PEN (NF)] 20 units SQ HS Levothyroxine [Synthroid -] 150 mcg PO DAILY 01/16/16 Losartan Potassium [Cozaar -] 50 mg PO DAILY 01/16/16 metFORMIN HCL [Metformin HCl] 500 mg PO TID 01/14/17 Atorvastatin Ca [Lipitor] 40 mg PO HS 08/30/17 Alpha Lipoic Acid 200 mg PO DAILY 01/26/18 Ascorbic Acid [Vitamin C -] 500 mg PO BID 01/26/18 Cholecalciferol (Vitamin D3) [Vitamin D] 2,000 unit PO TID 01/26/18 Collagen, Hydrolysate (Bovine) [Collagen Hydrolysate] 1 gm MC ASDIR 01/26/18 Cranberry 500 mg PO DAILY 01/26/18 Cyanocobalamin [Vitamin B12 -] 500 mcg PO ASDIR 01/26/18 Flaxseed Oil [Flaxseed] 1,000 mg PO DAILY 01/26/18 Folic Acid 0.8 mg PO BID 01/26/18 Magnesium Oxide [Magnesium] 400 mg PO DAILY 01/26/18 Metoprolol Succinate [Toprol Xl -] 25 mg PO DAILY 01/26/18 Oxycodone HCl 5 mg PO ONCE 01/26/18 Pantoprazole Sodium [Protonix -] 40 mg PO DAILY 01/26/18 Ubidecarenone/Vit E Acet [Co Q-10 100 mg Softgel] 1 each PO DAILY 01/26/18 Vit B Comp/C/Folic/Iron/Vit E [Vitamin B Complex Tablet] 1 each PO DAILY Vitamin D3/Vitamin K2 (Mk4) [K2 Plus D3 Tablet] 1 each PO DAILY 01/26/18 Family Disease History - Family Disease History Family Disease History: CA: Sister (breast ca), Daughter (breast ca) Review of Systems - Review of Systems Constitutional: reports: No Symptoms Eyes: reports: No Symptoms HENT: reports: No Symptoms Neck: reports: Pain on Movement Cardiovascular: reports: Chest Pain, Shortness of Breath Respiratory: reports: No Symptoms Gastrointestinal: reports: No Symptoms Genitourinary: reports: No Symptoms Musculoskeletal: reports: Back Pain Integumentary: reports: No Symptoms Neurological: reports: Headache Hematology/Lymphatic: reports: No Symptoms Psychiatric: reports: No Symptoms Physical Examination Vital Signs: Vital Signs Temperature 98.7 F 01/26/18 03:12 Pulse Rate 69 01/26/18 04:56 Respiratory Rate 01/26/18 04:56 Blood Pressure 185/93 01/26/18 04:56 O2 Sat by Pulse Oximetry (%) 98 01/26/18 04:56 Constitutional: Yes: Well Nourished, Obese Eyes: Yes: Conjunctiva Clear, EOM Intact HENT: Yes: Atraumatic, Normocephalic Neck: Yes: Supple, Trachea Midline Cardiovascular: Yes: Regular Rate and Rhythm Respiratory: Yes: CTA Bilaterally Gastrointestinal: Yes: Normal Bowel Sounds, Soft Musculoskeletal: Yes: Back Pain Extremities: Yes: WNL Edema: No Peripheral Pulses WNL: Yes Integumentary: Yes: WNL Neurological: Yes: WNL ...Motor Strength: WNL Psychiatric: Yes: WNL Labs: CBC, BMP 01/26/18 03:30 01/26/18 03:23 Imaging - Results Chest X-ray: Report Reviewed EKG: Image Reviewed Problem List - Problems (1) Headache Code(s): R51 - HEADACHE Qualifiers: Headache chronicity pattern: chronic headache (2) Hyponatremia Code(s): E87.1 - HYPO-OSMOLALITY AND HYPONATREMIA (3) CAD (coronary artery disease) Code(s): I25.10 - ATHSCL HEART DISEASE OF [place] CORONARY ARTERY W/O ANG PCTRS Qualifiers: Coronary Disease-Associated Artery/Lesion type: [place] artery Associated angina: without angina (4) IDDM (insulin dependent diabetes mellitus) Code(s): E11.9 - TYPE 2 DIABETES MELLITUS WITHOUT COMPLICATIONS; Z79.4 - ASSISTED (CURRENT) USE OF INSULIN (5) Obesity (BMI 30.0-34.9) Code(s): E66.9 - OBESITY, UNSPECIFIED (6) Chest pain Code(s): R07.9 - CHEST PAIN, UNSPECIFIED Qualifiers: Chest pain type: unspecified Qualified Code(s): R07.9 - Chest pain, unspecified Assessment/Plan cardiology and neuro consult requested head CT unremarkable ekg, first set of enzymes unremarkable will get echo hold HCTZ in view of hyponatremia serial cardiac enzymes
--- NOTE | 2018-01-26 09:09 | CON.CARD ---
Cardiology Consult (text) - Consultation Consultation Note: Consult Dictated IMP: ASHD Hyponatremia Headaches Acute on chronic diastolic CHF REC: 1. Correction of Na+ as per Renal, have consulted also for assistance with volume management as CXR shows congestive changes. Hyponatremia may be due to volume overload/CHF Other possibility is HCTZ effect Check BNP Echo 2. Neuro eval for headaches, as per PMD 3. Continue ASA/Plavix, h/o prior PCI.
[2018-01-26] MEDS: INSULIN (NOVOLOG) ASPART 100 UNITS/ML 10ML VIAL SQ PRN (09:19)
[2018-01-26] MEDS ORDERED: INSULIN (NOVOLOG) ASPART 100 UNITS/ML 10ML VIAL ONE (09:28)
--- NOTE | 2018-01-26 09:40 | CONS ---
CARDIOLOGY CONSULTATION DATE OF CONSULTATION: 01/26/2018 REQUESTING PHYSICIAN: Ban Cano MD REASON FOR CONSULTATION: Coronary disease and volume management. The patient is my office patient, an 83-year-old female with past medical history of atrial fibrillation, not on anticoagulation due to prior falls; coronary disease status post PCI; hypertension; hyperlipidemia; who presents to the emergency room for evaluation of a multitude of symptoms including headache, epigastric discomfort, and mild nausea. In the ER, her sodium was found to be 126. Head CT scan was negative for acute pathology. She describes feeling short of breath and with headache which began last evening. She denies substernal chest pain. Her pain is more in the epigastric region and radiates bilaterally under the ribcage area. She has mild lower extremity edema. Denies fevers or chills. She does have a dry cough which has been for approximately 2 days. Denies diarrhea or any other symptoms. She denies any other neurological symptoms. No slurring of speech. No visual changes. No focal weakness. She denies palpitations, lightheadedness, or recent syncope. PAST MEDICAL HISTORY: Is as outlined above, diabetes, hypothyroidism. HOME MEDICATIONS: Include oxycodone p.r.n., vitamin B12, flaxseed oil, vitamin D3, magnesium, vitamin C, Toprol-XL 25 mg daily, Protonix 40 mg daily, insulin, losartan 50 mg daily, Synthroid 150 mcg daily, hydrochlorothiazide 12.5 mg daily, Plavix 75 mg daily, Lipitor 40 mg daily, and baby aspirin. FAMILY HISTORY: Noncontributory. SOCIAL HISTORY: Nonsmoker. Lives with . PHYSICAL EXAMINATION: Vital Signs: Afebrile; temperature 97.8. Pulse 57, regular. Blood pressure 152/72. O2 saturation 98 on 2 L. Neck: No carotid bruits. Heart: S1, S2 regular. Soft systolic murmur, right sternal border. Chest: Bilateral mild expiratory wheezing. Slight decreased breath sounds at the bases. Abdomen: No rebound or guarding. Mild epigastric tenderness on deep palpation. Extremities: Edema 1+. ECG showed sinus rhythm, first-degree AV block, poor R-wave progression. Head CT was negative. Chest x-ray showed cardiomegaly with congestive changes. LABORATORY DATA: CBC showed white count of 3.7, hematocrit of 29.8, platelets 178. INR 1.07. Sodium 126, potassium 3.7, creatinine 0.9. LFTs normal. IMPRESSION: 1. Atherosclerotic heart disease. 2. Hyponatremia. 3. Headaches. 4. [id number] diastolic congestive heart failure. RECOMMENDATIONS: 1. Correction of sodium as per Renal. I have consulted Nephrology for assistance with volume management as chest x-ray shows congestive changes. Her hyponatremia may be due to volume overload/CHF. Other possibilities include hydrochlorothiazide effect. We will check BNP and echocardiogram. She will probably also need urine studies. 2. Neurology evaluation for headaches as per PMD. 3. Hold hydrochlorothiazide for now. 4. Continue aspirin, Plavix, and statin for her history of coronary disease and prior PCI. Thank you for the consultation. KELLEN BUITRAGO M.D. [id number]
[2018-01-26] MEDS ORDERED: FUROSEMIDE 40 MG/4 ML INJECTABLE VIAL IVPUSH ONE (09:45)
[2018-01-26] MEDS: CLOPIDOGREL BISULFATE 75 MG TABLET (FP) PO SCH (09:57)
[2018-01-26] MEDS: metoPROLOL SUCCINATE 25 MG TAB.SR.24H (FP) PO SCH (09:57)
[2018-01-26] MEDS: LEVOTHYROXINE NA 150 MCG TABLET PO SCH (09:58)
[2018-01-26] MEDS: PANTOPRAZOLE 40 MG TABLET (FP) PO SCH (09:59)
[2018-01-26] MEDS: LOSARTAN POTASSIUM 50 MG TABLET (FP) PO SCH (10:00)
[2018-01-26] MEDS: metFORMIN HCL 500 MG TABLET (FP) PO SCH ×2 (10:00→16:51)
[2018-01-26] MEDS: MAGNESIUM OXIDE 400 MG TABLET (FP) PO SCH (10:00)
[2018-01-26] MEDS: ASPIRIN 81 MG CHEWABLE TABLETS PO SCH (10:00)
[2018-01-26] MEDS ORDERED: ASPIRIN 81 MG CHEWABLE TABLETS ONE (10:01)
[2018-01-26 10:56] LABS: ANION GAP 9 (8-16); BLOOD UREA NITROGEN 13 mg/dL (7-18); CALCIUM 8.6 mg/dL (8.5-10.1); CHLORIDE 88 mmol/L (98-107); CO2 29 mmol/L (21-32); CREATININE 0.9 mg/dL (0.55-1.02); GLUCOSE,RANDOM 142 mg/dL (74-106); POTASSIUM 3.7 mmol/L (3.5-5.1); SODIUM 126 mmol/L (136-145)
[2018-01-26 11:00] LABS: N-TERMINAL BNP 651.09 pg/ml (5-450)
[2018-01-26] MEDS: CHOLECALCIFEROL (VITAMIN D3) 1,000 UNIT TABLET (FP) PO SCH ×2 (13:11→22:32)
--- NOTE | 2018-01-26 14:21 | EKG ---
Test Reason : Blood Pressure : / mmHG Vent. Rate : 057 BPM Atrial Rate : 057 BPM P-R Int : 264 ms QRS Dur : 092 ms QT Int : 462 ms P-R-T Axes : 040 -34 020 degrees QTc Int : 449 ms SINUS BRADYCARDIA WITH 1ST DEGREE A-V BLOCK LEFT AXIS DEVIATION POSSIBLE ANTEROSEPTAL INFARCT , AGE UNDETERMINED ABNORMAL ECG WHEN COMPARED WITH ECG OF 30-AUG-2017 13:03, SINUS RHYTHM HAS REPLACED ATRIAL FLUTTER VENT. RATE HAS DECREASED BY 28 BPM BORDERLINE CRITERIA FOR ANTEROSEPTAL INFARCT ARE NOW PRESENT NONSPECIFIC T WAVE ABNORMALITY NO LONGER EVIDENT IN LATERAL LEADS Confirmed by ASHANTI MARIO MD ([id number]) on 01/26/2018 2:21:29 PM Referred By: Confirmed By:ASHANTI MARIO MD
--- NOTE | 2018-01-26 15:49 | CONSULT ---
Consult Consult Specialty:: Nephrology Reason for Consultation:: hyponatremia - History of Present Illness Chief Complaint: vomiting History of Present Illness: Pt is an 83 year old female with pmhx of a-fib, HTN, HLD, CAD and DM who presents to the ER with nausea and vomiting. She also complains of abdominal pain. She does have shortness of breath with exertion and with laying flat. She was found to be hyponatremic and I was called to evaluate her. She was on a thiazide diuretic. She has had several episodes of vomiting and has not been eating much. She was given a small dose of lasix as she had signs of fluid overload. - History Source History Provided By: Patient, Medical Record - Past Medical History Cardio/Vascular: Yes: AFIB (h/o afib, s/p cardioversion in 2014 not on ac since) , CAD (4 stents, card.cath on 2009, 2014, ), CHF, HTN, Hyperlipdemia Musculoskeletal: Yes: Chronic low back pain Endocrine: Yes: Diabetes Mellitus (insulin dependent for 30 years) - Past Surgical History Past Surgical History: Yes: Appendectomy (1984), Arthrosocopy (rotator cuff repair on left), Cholecystectomy (1989), Hysterectomy (with bso 1984 for fibroid uterus) - Alcohol/Substance Use Hx Alcohol Use: No History of Substance Use: reports: None - Smoking History Smoking history: Never smoked Have you smoked in the past 12 months: No - Social History ADL: Independent History of Recent Travel: No Home Medications - Allergies Allergies/Adverse Reactions: Allergies Allergy/AdvReac Type Severity Reaction Status Date / Time No Known Allergies Allergy Verified 01/26/18 03:15 - Home Medications Home Medications: Ambulatory Orders Aspirin [ASA -] 81 mg PO DAILY 01/16/16 Clopidogrel Bisulfate [Plavix -] 75 mg PO DAILY 01/16/16 Hydrochlorothiazide [Hctz -] 12.5 mg PO DAILY 01/16/16 Insulin Glargine,Hum.rec.anlog [Lantus Solostar PEN (NF)] 20 units SQ HS Levothyroxine [Synthroid -] 150 mcg PO DAILY 01/16/16 Losartan Potassium [Cozaar -] 50 mg PO DAILY 01/16/16 RX: metFORMIN HCL [Metformin HCl] 500 mg PO TID 01/14/17 Atorvastatin Ca [Lipitor] 40 mg PO HS 08/30/17 Ascorbic Acid [Vitamin C -] 500 mg PO BID 01/26/18 Cholecalciferol (Vitamin D3) [Vitamin D] 2,000 unit PO TID 01/26/18 Collagen, Hydrolysate (Bovine) [Collagen Hydrolysate] 1 gm MC ASDIR 01/26/18 Cyanocobalamin [Vitamin B12 -] 500 mcg PO ASDIR 01/26/18 Flaxseed Oil [Flaxseed] 1,000 mg PO DAILY 01/26/18 Magnesium Oxide [Magnesium] 400 mg PO DAILY 01/26/18 Metoprolol Succinate [Toprol Xl -] 25 mg PO DAILY 01/26/18 Pantoprazole Sodium [Protonix -] 40 mg PO DAILY 01/26/18 RX: Alpha Lipoic Acid 200 mg PO DAILY 01/26/18 RX: Cranberry 500 mg PO DAILY 01/26/18 RX: Folic Acid 0.8 mg PO BID 01/26/18 RX: Oxycodone HCl 5 mg PO ONCE 01/26/18 Ubidecarenone/Vit E Acet [Co Q-10 100 mg Softgel] 1 each PO DAILY 01/26/18 Vit B Comp/C/Folic/Iron/Vit E [Vitamin B Complex Tablet] 1 each PO DAILY Vitamin D3/Vitamin K2 (Mk4) [K2 Plus D3 Tablet] 1 each PO DAILY 01/26/18 Family Disease History - Family Disease History Family Disease History: CA: Sister (breast ca), Daughter (breast ca) Review of Systems - Review of Systems Constitutional: reports: Malaise Eyes: reports: No Symptoms HENT: reports: No Symptoms Neck: reports: No Symptoms Cardiovascular: reports: No Symptoms Respiratory: reports: No Symptoms Gastrointestinal: reports: Vomiting Genitourinary: reports: No Symptoms Musculoskeletal: reports: No Symptoms Integumentary: reports: No Symptoms Neurological: reports: No Symptoms Endocrine: reports: No Symptoms Physical Exam Vital Signs: Vital Signs Temperature 98.7 F 01/26/18 15:12 Pulse Rate 58 L 01/26/18 15:12 Respiratory Rate 18 01/26/18 15:12 Blood Pressure 152/77 01/26/18 15:12 O2 Sat by Pulse Oximetry (%) 98 01/26/18 13:07 Constitutional: Yes: Calm Eyes: Yes: Conjunctiva Clear HENT: Yes: Atraumatic Neck: Yes: Supple Cardiovascular: Yes: S1, S2 Respiratory: Yes: CTA Bilaterally Gastrointestinal: Yes: Abdomen, Obese, Tenderness Renal/: Yes: WNL Musculoskeletal: Yes: WNL Edema: LLE: Trace, RLE: Trace Neurological: Yes: Oriented Psychiatric: Yes: Oriented Labs: CBC, BMP 01/26/18 03:30 01/26/18 10:22 Imaging - Results Chest X-ray: Report Reviewed Problem List - Problems (1) CAD (coronary artery disease) Code(s): I25.10 - ATHSCL HEART DISEASE OF [id number] CORONARY ARTERY W/O ANG PCTRS Qualifiers: Coronary Disease-Associated Artery/Lesion type: [place] artery Associated angina: without angina (2) Chest pain Code(s): R07.9 - CHEST PAIN, UNSPECIFIED Qualifiers: Chest pain type: unspecified Qualified Code(s): R07.9 - Chest pain, unspecified (3) Hyponatremia Code(s): E87.1 - HYPO-OSMOLALITY AND HYPONATREMIA (4) IDDM (insulin dependent diabetes mellitus) Code(s): E11.9 - TYPE 2 DIABETES MELLITUS WITHOUT COMPLICATIONS; Z79.4 - [place] (CURRENT) USE OF INSULIN (5) Obesity (BMI 30.0-34.9) Code(s): E66.9 - OBESITY, UNSPECIFIED Assessment/Plan Current Medications Generic Name Dose Route Start Last Admin Trade Name Freq PRN Reason Stop Dose Admin Acetaminophen 650 mg 01/26/18 09:11 Tylenol - PO Q6H PRN HEADACHE Aspirin 81 mg 01/26/18 10:00 01/26/18 10:00 Asa - PO 81 mg DAILY OLMAN Administration Atorvastatin Calcium 40 mg 01/26/18 22:00 Lipitor - PO HS OLMAN Cholecalciferol 2,000 unit 01/26/18 14:00 01/26/18 13:11 Vitamin D3 - PO 2,000 unit TID OLMAN Administration Clopidogrel Bisulfate 75 mg 01/26/18 10:00 01/26/18 09:57 Plavix - PO 75 mg DAILY OLMAN Administration Insulin Aspart 1 units 01/26/18 09:13 01/26/18 09:19 Novolog Vial SQ 1 units ACHS PRN Administration ELEVATED BLOOD SUGAR Protocol Insulin Detemir 20 units 01/26/18 22:00 Levemir Vial SQ HS OLMAN Levothyroxine Sodium 150 mcg 01/26/18 09:15 01/26/18 09:58 Synthroid - PO 150 mcg DAILY@0700 OLMAN Administration Losartan Potassium 50 mg 01/26/18 10:00 01/26/18 10:00 Cozaar - PO 50 mg DAILY OLMAN Administration Magnesium Oxide 400 mg 01/26/18 10:00 01/26/18 10:00 Mag-Ox - PO 400 mg DAILY OLMAN Administration Metoprolol Succinate 25 mg 01/26/18 10:00 01/26/18 09:57 Toprol Xl - PO 25 mg DAILY OLMAN Administration Ondansetron HCl 4 mg 01/26/18 17:19 Zofran Injection IVPUSH Q8H PRN NAUSEA Pantoprazole Sodium 40 mg 01/26/18 10:00 01/26/18 09:59 Protonix - PO 40 mg DAILY OLMAN Administration Laboratory Tests 02/08/17 08/30/17 01/26/18 02:00 11:53 03:23 Hgb INR 1.07 Sodium 137 133 L Creatinine 01/26/18 01/26/18 01/26/18 03:23 03:30 10:22 Hgb 10.3 L INR Sodium 126 L 126 L Creatinine 0.9 01/26/18 16:00 Hgb INR Sodium 128 L Creatinine 0.8 Impression 1. Hyponatremia 2. HTN 3. CHF 4. nausea and vomiting 5. DM 6. hypothyroid Plan - check plasma and urine osm - check urine lytes - sodium is improving - keep npo for now - hold off fluids - repeat lab sin am - stop hctz - called and discussed with medical attending, pt will get abd imaging - discussed with cardiology - check tsh and cortisol - monitor bp - hyponatremia likely a combination of GI loses and thiazide Dr Weathers
--- NOTE | 2018-01-26 16:59 | ECHO ---
Name: TROPEA, AGUSTIN Exam:Adult Echocardiogram Study Date: 01/26/2018 02:54 PM Reason For Study: lvsf Height: 62 in Weight: 165 lb BSA: 1.8 m2 MMode/2D Measurements & Calculations IVSd: 1.2 cm LA dimension: 3.6 cm LVIDd: 4.1 cm LVIDs: 2.8 cm LVPWd: 0.96 cm LVPWs: 1.1 cm EDV(Teich): 75.3 ml ESV(Teich): 29.8 ml LVOT diam: 3.2 cm Doppler Measurements & Calculations MV E max rob: 78.0 cm/sec Ao V2 max: 141.2 cm/sec MV A max rob: 57.8 cm/sec Ao max P.0 mmHg MV E/A: 1.4 MV dec time: 0.31 sec TR max rob: 274.9 cm/sec Med Peak E' Rob: 8.8 cm/sec TR max P.5 mmHg Med E/e': 8.9 Lat Peak E' Rob: 8.9 cm/sec Lat E/e': 8.8 Procedure A two-dimensional transthoracic echocardiogram with color flow and Doppler was performed. The study w as technically limited with all images being suboptimal in quality. Left Ventricle The left ventricular size, thickness and function are normal. The left ventricular ejection fraction is normal. Ejection Fraction = 60-65%. No regional wall motion abnormalities noted. Right Ventricle The right ventricle is not well visualized. Atria The left atrial size is normal. Right atrium not well visualized. Mitral Valve There is no mitral regurgitation noted. Tricuspid Valve There is trace tricuspid regurgitation. There was insufficient TR detected to calculate RV systolic p ressure. Aortic Valve No hemodynamically significant valvular aortic stenosis. No aortic regurgitation is present. Pulmonic Valve The pulmonic valve is not well visualized. Great Vessels The aortic root is normal size. Pericardium/Pleura There is no pericardial effusion. Interpretation Summary The study was technically limited with all images being suboptimal in quality. The left ventricular size, thickness and function are normal. The right ventricle is not well visualized. There is trace tricuspid regurgitation. MD Dominick Johnson 01/26/2018 04:59 PM
[2018-01-26 17:09] LABS: ANION GAP 10 (8-16); BLOOD UREA NITROGEN 13 mg/dL (7-18); CALCIUM 8.7 mg/dL (8.5-10.1); CHLORIDE 88 mmol/L (98-107); CO2 30 mmol/L (21-32); CREATININE 0.8 mg/dL (0.55-1.02); GLUCOSE,RANDOM 106 mg/dL (74-106); POTASSIUM 3.8 mmol/L (3.5-5.1); SODIUM 128 mmol/L (136-145)
[2018-01-26] MEDS ORDERED: ONDANSETRON 4 MG/2 ML VIAL IVPUSH PRN (17:19)
[2018-01-26] MEDS: ACETAMINOPHEN 325 MG TABLET (FP) PO PRN (18:29)
[2018-01-26 20:39] LABS: URINE APPEARANCE CLEAR; URINE BILIRUBIN NEGATIVE (<2.0 mg/dL); URINE COLOR STRAW; URINE GLUCOSE (UA) NEGATIVE (NEGATIVE); URINE KETONE NEGATIVE (NEGATIVE); URINE LEUK ESTERASE TRACE (NEGATIVE); URINE NITRITE NEGATIVE (NEGATIVE); URINE PROTEIN NEGATIVE (NEGATIVE); URINE UROBILINOGEN NEGATIVE mg/dL (0.2-1.0)
[2018-01-26 21:26] LABS: EPI CELLS RARE /HPF (FEW)
[2018-01-26] MEDS: ATORVASTATIN CA 40 MG TABLET (FP) PO SCH (22:32)
[2018-01-26] MEDS: INSULIN (LEVEMIR) 100 UNITS/ML UNITS SQ SCH (22:38)
[2018-01-27] MEDS: CHOLECALCIFEROL (VITAMIN D3) 1,000 UNIT TABLET (FP) PO SCH ×3 (06:38→21:08)
[2018-01-27] MEDS: LEVOTHYROXINE NA 150 MCG TABLET PO SCH (06:38)
[2018-01-27 07:53] LABS: ALBUMIN 3.7 g/dl (3.4-5.0); ANION GAP 9 (8-16); BLOOD UREA NITROGEN 13 mg/dL (7-18); CALCIUM 8.7 mg/dL (8.5-10.1); CHLORIDE 87 mmol/L (98-107); CO2 31 mmol/L (21-32); CREATININE 0.9 mg/dL (0.55-1.02); GLUCOSE,RANDOM 103 mg/dL (74-106); SGOT/AST 18 U/L (15-37); SGPT/ALT 26 U/L (12-78); SODIUM 127 mmol/L (136-145)
[2018-01-27 08:02] LABS: ALK PHOS 62 U/L (45-117); BILIRUBIN,TOTAL 0.7 mg/dL (0.2-1.0); N-TERMINAL BNP 1517.69 pg/ml (5-450); TOT PROT 6.8 g/dl (6.4-8.2)
--- NOTE | 2018-01-27 08:29 | PN ---
Progress Note, Physician Chief Complaint: CT A/P no acute path, abd pain improved. Less nausea TELE: Aflutter with pauses occasionally 2 second range mostly while asleep History of Present Illness: Much less SOB after dose Lasix - Current Medication List Current Medications: Active Medications Acetaminophen (Tylenol -) 650 mg PO Q6H PRN PRN Reason: HEADACHE Last Admin: 01/26/18 18:29 Dose: 650 mg Aspirin (Asa -) 81 mg PO DAILY [facility] Last Admin: 01/26/18 10:00 Dose: 81 mg Atorvastatin Calcium (Lipitor -) 40 mg PO HS [facility] Last Admin: 01/26/18 22:32 Dose: 40 mg Cholecalciferol (Vitamin D3 -) 2,000 unit PO TID [facility] Last Admin: 01/27/18 06:38 Dose: 2,000 unit Clopidogrel Bisulfate (Plavix -) 75 mg PO DAILY [facility] Last Admin: 01/26/18 09:57 Dose: 75 mg Insulin Aspart (Novolog Vial) 1 units SQ ACHS PRN; Protocol PRN Reason: ELEVATED BLOOD SUGAR Last Admin: 01/26/18 09:19 Dose: 1 units Insulin Detemir (Levemir Vial) 20 units SQ HS [facility] Last Admin: 01/26/18 22:38 Dose: 15 units Levothyroxine Sodium (Synthroid -) 150 mcg PO DAILY@0700 [facility] Last Admin: 01/27/18 06:38 Dose: 150 mcg Losartan Potassium (Cozaar -) 50 mg PO DAILY [facility] Last Admin: 01/26/18 10:00 Dose: 50 mg Magnesium Oxide (Mag-Ox -) 400 mg PO DAILY [facility] Last Admin: 01/26/18 10:00 Dose: 400 mg Metoprolol Succinate (Toprol Xl -) 25 mg PO DAILY [facility] Last Admin: 01/26/18 09:57 Dose: 25 mg Ondansetron HCl (Zofran Injection) 4 mg IVPUSH Q8H PRN PRN Reason: NAUSEA Last Admin: 01/26/18 19:54 Dose: 4 mg Pantoprazole Sodium (Protonix -) 40 mg PO DAILY [facility] Last Admin: 01/26/18 09:59 Dose: 40 mg Polyethylene Glycol (Miralax (For Daily Use) -) 17 gm PO DAILY [facility] Potassium Chloride (K-Dur -) 40 meq PO ONCE ONE Stop: 07/20/18 09:01 Sodium Chloride (Sodium Chloride Tablet -) 1 gm PO ONCE ONE Stop: 01/27/18 09:01 - Objective Vital Signs: Vital Signs Temperature 98.3 F 01/27/18 02:00 Pulse Rate 70 01/27/18 02:00 Respiratory Rate 18 01/27/18 02:00 Blood Pressure 123/67 01/27/18 02:00 O2 Sat by Pulse Oximetry (%) 96 01/26/18 21:00 Constitutional: Yes: Calm Cardiovascular: Yes: Pulse Irregular Respiratory: Yes: CTA Bilaterally Gastrointestinal: Yes: Soft (non-tender today) Edema: No (improved) Neurological: Yes: Alert, Oriented ...Motor Strength: WNL Labs: CBC, BMP 01/26/18 03:30 01/27/18 06:40 INR, PTT INR 1.07 (0.82-1.09) 01/26/18 03:23 - ....Imaging EKG: Image Reviewed Assessment/Plan IMP: ASHD Hyponatremia Headaches-improved Acute on chronic diastolic CHF-improved Abd pain, also improved: ?gastroenteritis REC: 1. Correction of Na+ as per Renal. Appreciate consult. 2. Continue ASA/Plavix, h/o prior PCI. Also confers benefit for PAF. Not on full AC due to history of recurrent falls. 3. Diurese PRN. 4. Replete K+
--- NOTE | 2018-01-27 08:36 | PN ---
Progress Note (short form) - Note Progress Note: feeling better, hungry no further vomiting, denies headache CBC, BMP 01/26/18 03:30 01/27/18 06:40 Vital Signs Period Temp Pulse Resp BP Sys/Castillo Pulse Ox Last 24 Hr 98.3 F-98.7 F 57-86 16-20 123-169/67-77 96-98 s1s2 atrial flutter on monitor lungs cta abd soft NT +BS no edema aaox3 nausea,vomiting resolved-fecal retention and renal stones on CT IDDM headache syndrome chest pain resolved, echo noted, troponin down trending hyponatremia hypokalemia HTN replete lytes hold diuretics for now dc planning if electrolytes improve Problem List - Problems (1) Headache Code(s): R51 - HEADACHE Qualifiers: Headache chronicity pattern: chronic headache (2) Hyponatremia Code(s): E87.1 - HYPO-OSMOLALITY AND HYPONATREMIA (3) CAD (coronary artery disease) Code(s): I25.10 - ATHSCL HEART DISEASE OF [place] CORONARY ARTERY W/O ANG PCTRS Qualifiers: Coronary Disease-Associated Artery/Lesion type: [place] artery Associated angina: without angina (4) IDDM (insulin dependent diabetes mellitus) Code(s): E11.9 - TYPE 2 DIABETES MELLITUS WITHOUT COMPLICATIONS; Z79.4 - [employer] (CURRENT) USE OF INSULIN (5) Obesity (BMI 30.0-34.9) Code(s): E66.9 - OBESITY, UNSPECIFIED (6) Chest pain Code(s): R07.9 - CHEST PAIN, UNSPECIFIED Qualifiers: Chest pain type: unspecified Qualified Code(s): R07.9 - Chest pain, unspecified
[2018-01-27] MEDS ORDERED: POTASSIUM CHLORIDE TABS 20 MEQ TABLET.ER (FP) PO ONE (09:00)
[2018-01-27] MEDS ORDERED: SODIUM CHLORIDE 1 GM TABLET PO ONE (09:00)
[2018-01-27] MEDS: metoPROLOL SUCCINATE 25 MG TAB.SR.24H (FP) PO SCH (09:22)
[2018-01-27] MEDS: POLYETHYLENE GLYCOL 3350 119 GM BTL PO SCH (09:22)
[2018-01-27] MEDS: CLOPIDOGREL BISULFATE 75 MG TABLET (FP) PO SCH (09:22)
[2018-01-27] MEDS: ASPIRIN 81 MG CHEWABLE TABLETS PO SCH (09:22)
[2018-01-27] MEDS: LOSARTAN POTASSIUM 50 MG TABLET (FP) PO SCH (09:22)
[2018-01-27] MEDS: MAGNESIUM OXIDE 400 MG TABLET (FP) PO SCH (09:22)
[2018-01-27] MEDS: PANTOPRAZOLE 40 MG TABLET (FP) PO SCH (09:22)
--- NOTE | 2018-01-27 11:34 | PN ---
Progress Note, Physician Chief Complaint: im feeling better History of Present Illness: patient seen and examined at bedside. she states she is feelingmcuh better than yesterday, she is not experiencing any more nausea or vomiting and her headaches have been improving. also her breathing is improved she denies any CP/ SOB/N/V. - Current Medication List Current Medications: Active Medications Acetaminophen (Tylenol -) 650 mg PO Q6H PRN PRN Reason: HEADACHE Last Admin: 01/26/18 18:29 Dose: 650 mg Aspirin (Asa -) 81 mg PO DAILY [facility] Last Admin: 01/27/18 09:22 Dose: 81 mg Atorvastatin Calcium (Lipitor -) 40 mg PO HS [facility] Last Admin: 01/26/18 22:32 Dose: 40 mg Cholecalciferol (Vitamin D3 -) 2,000 unit PO TID [facility] Last Admin: 01/27/18 06:38 Dose: 2,000 unit Clopidogrel Bisulfate (Plavix -) 75 mg PO DAILY [facility] Last Admin: 01/27/18 09:22 Dose: 75 mg Insulin Aspart (Novolog Vial) 1 units SQ ACHS PRN; Protocol PRN Reason: ELEVATED BLOOD SUGAR Last Admin: 01/26/18 09:19 Dose: 1 units Insulin Detemir (Levemir Vial) 20 units SQ HS [facility] Last Admin: 01/26/18 22:38 Dose: 15 units Levothyroxine Sodium (Synthroid -) 150 mcg PO DAILY@0700 [facility] Last Admin: 01/27/18 06:38 Dose: 150 mcg Losartan Potassium (Cozaar -) 50 mg PO DAILY [facility] Last Admin: 01/27/18 09:22 Dose: 50 mg Magnesium Oxide (Mag-Ox -) 400 mg PO DAILY [facility] Last Admin: 01/27/18 09:22 Dose: 400 mg Metoprolol Succinate (Toprol Xl -) 25 mg PO DAILY [facility] Last Admin: 01/27/18 09:22 Dose: 25 mg Ondansetron HCl (Zofran Injection) 4 mg IVPUSH Q8H PRN PRN Reason: NAUSEA Last Admin: 01/26/18 19:54 Dose: 4 mg Pantoprazole Sodium (Protonix -) 40 mg PO DAILY [facility] Last Admin: 01/27/18 09:22 Dose: 40 mg Polyethylene Glycol (Miralax (For Daily Use) -) 17 gm PO DAILY [facility] Last Admin: 01/27/18 09:22 Dose: 17 grams - Objective Vital Signs: Vital Signs Temperature 98.4 F 01/27/18 09:15 Pulse Rate 65 01/27/18 09:15 Respiratory Rate 18 01/27/18 09:15 Blood Pressure 108/60 01/27/18 09:15 O2 Sat by Pulse Oximetry (%) 97 01/27/18 09:15 Constitutional: Yes: No Distress Cardiovascular: Yes: Regular Rate and Rhythm, S1, S2 Respiratory: Yes: CTA Bilaterally Gastrointestinal: Yes: Normal Bowel Sounds, Soft. No: Tenderness Musculoskeletal: Yes: Back Pain (chronic) Edema: No (no LE edema) Neurological: Yes: Alert, Oriented Labs: CBC, BMP 01/26/18 03:30 01/27/18 06:40 INR, PTT INR 1.07 (0.82-1.09) 01/26/18 03:23 Problem List - Problems (1) CAD (coronary artery disease) Code(s): I25.10 - ATHSCL HEART DISEASE OF [place] CORONARY ARTERY W/O ANG PCTRS Qualifiers: Coronary Disease-Associated Artery/Lesion type: [place] artery Associated angina: without angina (2) Headache Code(s): R51 - HEADACHE Qualifiers: Headache chronicity pattern: chronic headache (3) Hyponatremia Code(s): E87.1 - HYPO-OSMOLALITY AND HYPONATREMIA (4) IDDM (insulin dependent diabetes mellitus) Code(s): E11.9 - TYPE 2 DIABETES MELLITUS WITHOUT COMPLICATIONS; Z79.4 - [place] (CURRENT) USE OF INSULIN Assessment/Plan patient is clinically improving. -still hyponatremic at 127- hold fluids; give salt tablets -hypokalemia: replete electrolytes -monitor CMP and fluid status -repeat labs in AM
[2018-01-27] MEDS: INSULIN (NOVOLOG) ASPART 100 UNITS/ML 10ML VIAL SQ PRN ×2 (11:37→17:20)
[2018-01-27 16:12] LABS: ANION GAP 8 (8-16); BLOOD UREA NITROGEN 19 mg/dL (7-18); CALCIUM 8.6 mg/dL (8.5-10.1); CHLORIDE 91 mmol/L (98-107); CO2 29 mmol/L (21-32); CREATININE 1.1 mg/dL (0.55-1.02); GLUCOSE,RANDOM 170 mg/dL (74-106); POTASSIUM 4.6 mmol/L (3.5-5.1); SODIUM 128 mmol/L (136-145)
--- NOTE | 2018-01-27 16:41 | PN ---
Teaching Attending Note Name of Resident: Reta Bush (Nephrology) ATTENDING PHYSICIAN STATEMENT I saw and evaluated the patient. I reviewed the resident's note and discussed the case with the resident. I agree with the resident's findings and plan as documented. Nephrology Pt seen and examined at bedside. She is tolerating diet. SHe denies shortness of breath. She denies abdominal pain. Current Medications Generic Name Dose Route Start Last Admin Trade Name Freq PRN Reason Stop Dose Admin Acetaminophen 650 mg 01/26/18 09:11 01/26/18 18:29 Tylenol - PO 650 mg Q6H PRN Administration HEADACHE Aspirin 81 mg 01/26/18 10:00 01/27/18 09:22 Asa - PO 81 mg DAILY OLMAN Administration Atorvastatin Calcium 40 mg 01/26/18 22:00 01/26/18 22:32 Lipitor - PO 40 mg HS OLMAN Administration Cholecalciferol 2,000 unit 01/26/18 14:00 01/27/18 14:17 Vitamin D3 - PO 2,000 unit TID OLMAN Administration Clopidogrel Bisulfate 75 mg 01/26/18 10:00 01/27/18 09:22 Plavix - PO 75 mg DAILY OLMAN Administration Sodium Chloride 1,000 mls @ 55 mls/hr 01/27/18 16:45 Normal Saline - IV 01/28/18 02:44 ASDIR OLMAN Insulin Aspart 1 units 01/26/18 09:13 01/27/18 11:37 Novolog Vial SQ 1 units ACHS PRN Administration ELEVATED BLOOD SUGAR Protocol Insulin Detemir 20 units 01/26/18 22:00 01/26/18 22:38 Levemir Vial SQ 15 units HS OLMAN Administration Levothyroxine Sodium 150 mcg 01/26/18 09:15 01/27/18 06:38 Synthroid - PO 150 mcg DAILY@0700 OLMAN Administration Losartan Potassium 50 mg 01/26/18 10:00 01/27/18 09:22 Cozaar - PO 50 mg DAILY OLMAN Administration Magnesium Oxide 400 mg 01/26/18 10:00 01/27/18 09:22 Mag-Ox - PO 400 mg DAILY OLMAN Administration Metoprolol Succinate 25 mg 01/26/18 10:00 01/27/18 09:22 Toprol Xl - PO 25 mg DAILY OLMAN Administration Ondansetron HCl 4 mg 01/26/18 17:19 01/26/18 19:54 Zofran Injection IVPUSH 4 mg Q8H PRN Administration NAUSEA Pantoprazole Sodium 40 mg 01/26/18 10:00 01/27/18 09:22 Protonix - PO 40 mg DAILY OLMAN Administration Polyethylene Glycol 17 gm 01/27/18 10:00 01/27/18 09:22 Miralax (For Daily Use) - PO 17 grams DAILY OLMAN Administration Laboratory Tests 01/26/18 01/26/18 01/27/18 19:35 19:35 06:40 Serum Osmolality 270 L Urine Osmolality 288 L Ur Random Sodium 41 cardio s1s2 pulm clear GI soft ext neg edema neuro awake skin neg rash Impression 1. Hyponatremia 2. HTN 3. CHF 4. nausea and vomiting 5. DM 6. hypothyroid Plan - likely hyponatremia from thiazide and GI losses - gentle hydration - repeat bmp in am - pt tolerated diet - diuretic on hold, do not restart hctz in future - monitor bp Problem List - Problems (1) CAD (coronary artery disease) Code(s): I25.10 - ATHSCL HEART DISEASE OF [place] CORONARY ARTERY W/O ANG PCTRS Qualifiers: Coronary Disease-Associated Artery/Lesion type: [place] artery Associated angina: without angina (2) Chest pain Code(s): R07.9 - CHEST PAIN, UNSPECIFIED Qualifiers: Chest pain type: unspecified Qualified Code(s): R07.9 - Chest pain, unspecified (3) Hyponatremia Code(s): E87.1 - HYPO-OSMOLALITY AND HYPONATREMIA (4) IDDM (insulin dependent diabetes mellitus) Code(s): E11.9 - TYPE 2 DIABETES MELLITUS WITHOUT COMPLICATIONS; Z79.4 - PENITENTIARY (CURRENT) USE OF INSULIN (5) Obesity (BMI 30.0-34.9) Code(s): E66.9 - OBESITY, UNSPECIFIED
[2018-01-27] MEDS ORDERED: SODIUM CHLORIDE 1,000 ML IV SCH (16:45)
--- NOTE | 2018-01-27 18:21 | CONSULT ---
Consult - text type - Consultation Consultation Note: NEUROLOGY CONSULTATION is greatly appreciated: Events reviewed and patient examined with her of 64 years at the bedside. He aides with detailed history. This 83 yo RH woman with 4 children has H/O HTN, DM, Hypothyroidism, Chol and ASHD with AFib. Was on eloquis in the past but 1 of multiple falls since 2015 was complicated by subdural hematoma (SDH) successfully treated conservatively. On Insulins, HCTZ, clopidogrel, L-thyroxin, losartan, atorvastatin, metoprolol, and pantoprazole. Many, many years of Low back pain previously rquiring epidurals by pain management. Now on oxydodone PRN. Chronic headaches since early adulthood. Now 5 days/ week. Can be present in the AM. Left hemicranial or holocranial headaches with nausea, photophobia and phonophobia. Now admitted with increasing weakness and unsteadiness possibly influenced by hyponatremia. CT of head (reviewed): Mild-mod atrophy with diffuse microvascular changes. JUICE: Neck supple. Cor irreg. Neg SLR NEURO: Awake, alert, coop. Mild OMS. Fluent speech CN II-XII: normal without nystagmus. Motor. No drift or tremor. Normal strength. Normal reflexes except absent AJ's. Toes downgoing. Coord: No FTN dystaxia Sensory: Reduced pin and vibration to the distal calf. Romberg + Gait: Sl wide-based, shuffling, unsteady with turns. IMP: 1. Non-focal exam sig for mild B/L cerebral dysfunction. 2. Diabetic peripheral neuropathy 3. Lumbosacral Spinal stenosis (LSSS) 4. Migraine headaches 5. Admitted with Toxic-metabolic encephalopathy due to hyponatremia. Suggest: Check ESR, CRP to r/o temporal arteritis and B12, TSH. PT for gait with WALKER Begin topiramate 25 mg PO BID. Neuro f/u as out patient for slow escalation of topiramate dose and w/u of neuropathy/ataxia. Thank you very much, Karlo Lucero MD
[2018-01-27] MEDS ORDERED: PT OWN MED DRAWER 7, Y5N ONE (20:32)
[2018-01-27] MEDS: ACETAMINOPHEN 325 MG TABLET (FP) PO PRN (21:07)
[2018-01-27] MEDS: ATORVASTATIN CA 40 MG TABLET (FP) PO SCH (21:08)
[2018-01-27] MEDS: TOPIRAMATE 25 MG TABLET (FP) PO SCH (21:08)
[2018-01-27] MEDS: INSULIN (LEVEMIR) 100 UNITS/ML UNITS SQ SCH (21:38)
[2018-01-28 01:28] VITALS: BP 124/64; PULSE 63; TEMP 97.6
[2018-01-28] MEDS: CHOLECALCIFEROL (VITAMIN D3) 1,000 UNIT TABLET (FP) PO SCH ×2 (05:28→13:22)
[2018-01-28] MEDS: LEVOTHYROXINE NA 150 MCG TABLET PO SCH (06:18)
[2018-01-28 07:37] LABS: EOS % 2.8 % (0-4.5); HEMATOCRIT 29.8 % (32.4-45.2); HEMOGLOBIN 10.6 GM/dL (10.7-15.3); LYMPH % 31.9 % (8-40); MCH 32.4 pg (25.7-33.7); MCHC 35.7 g/dl (32.0-36.0); MEAN CELL VOLUME 90.8 fl (80-96); MEAN PLT VOLUME 8.6 fl (7.5-11.1); MONO % 14.6 % (3.8-10.2); NEUT % 49.7 % (42.8-82.8); PLATELET COUNT 156 K/MM3 (134-434); RBC 3.29 M/mm3 (3.60-5.2); RDW 13.7 % (11.6-15.6); WHITE BLOOD COUNT 4.3 K/mm3 (4.0-10.0)
--- NOTE | 2018-01-28 09:07 | PN ---
Progress Note (short form) - Note Progress Note: she is comfortable no fever or chills no distress vs Vital Signs Period Temp Pulse Resp BP Sys/Castillo Pulse Ox Last 24 Hr 97.6 F-99.6 F 58-68 18-18 108-124/60-68 97 labs CBC, BMP 01/28/18 06:39 Heent nad Neck supple Lungs clear Heart no change ext no edema ap chf htn hypothy low sodium she is improving waiting for sodium level if stable will send home
[2018-01-28] MEDS: CLOPIDOGREL BISULFATE 75 MG TABLET (FP) PO SCH (09:17)
[2018-01-28] MEDS: TOPIRAMATE 25 MG TABLET (FP) PO SCH (09:17)
[2018-01-28] MEDS: metoPROLOL SUCCINATE 25 MG TAB.SR.24H (FP) PO SCH (09:17)
[2018-01-28] MEDS: LOSARTAN POTASSIUM 50 MG TABLET (FP) PO SCH (09:17)
[2018-01-28] MEDS ORDERED: PT OWN MED DRAWER 7, Y5N ONE (09:17)
[2018-01-28] MEDS: MAGNESIUM OXIDE 400 MG TABLET (FP) PO SCH (09:18)
[2018-01-28] MEDS: ASPIRIN 81 MG CHEWABLE TABLETS PO SCH (09:18)
[2018-01-28] MEDS: PANTOPRAZOLE 40 MG TABLET (FP) PO SCH (09:19)
[2018-01-28] MEDS: POLYETHYLENE GLYCOL 3350 119 GM BTL PO SCH (09:20)
[2018-01-28 11:41] LABS: ALBUMIN 3.3 g/dl (3.4-5.0); ANION GAP 9 (8-16); BILIRUBIN,TOTAL 0.3 mg/dL (0.2-1.0); BLOOD UREA NITROGEN 16 mg/dL (7-18); CALCIUM 8.1 mg/dL (8.5-10.1); CHLORIDE 97 mmol/L (98-107); CO2 28 mmol/L (21-32); GLUCOSE,RANDOM 139 mg/dL (74-106); POTASSIUM 4.1 mmol/L (3.5-5.1); SGOT/AST 16 U/L (15-37); SGPT/ALT 23 U/L (12-78); SODIUM 134 mmol/L (136-145); TOT PROT 6.2 g/dl (6.4-8.2)
[2018-01-28 11:48] LABS: ALK PHOS 62 U/L (45-117)
--- NOTE | 2018-01-28 12:13 | PN ---
Progress Note (short form) - Note Progress Note: RENAL Pt is awake and alert has no complaints wants to go home no longer having vomiting Last Vital Signs Temp Pulse Resp BP Pulse Ox 97.6 F 63 18 124/64 97 01/28/18 01:26 01/28/18 01:26 01/28/18 01:26 01/28/18 01:26 01/27/18 09:15 lungs clear cvs s1s2 rr abd soft ext no edema neuro a+ox3 CBC, BMP 01/28/18 06:39 01/28/18 06:39 Current Medications Generic Name Dose Route Start Last Admin Trade Name Freq PRN Reason Stop Dose Admin Acetaminophen 650 mg 01/26/18 09:11 01/27/18 21:07 Tylenol - PO 650 mg Q6H PRN Administration HEADACHE Aspirin 81 mg 01/26/18 10:00 01/28/18 09:18 Asa - PO 81 mg DAILY OLMAN Administration Atorvastatin Calcium 40 mg 01/26/18 22:00 01/27/18 21:08 Lipitor - PO 40 mg HS OLMAN Administration Cholecalciferol 2,000 unit 01/26/18 14:00 01/28/18 05:28 Vitamin D3 - PO 2,000 unit TID OLMAN Administration Clopidogrel Bisulfate 75 mg 01/26/18 10:00 01/28/18 09:17 Plavix - PO 75 mg DAILY OLMAN Administration Insulin Aspart 1 units 01/26/18 09:13 01/27/18 17:20 Novolog Vial SQ 1 units ACHS PRN Administration ELEVATED BLOOD SUGAR Protocol Insulin Detemir 20 units 01/26/18 22:00 01/27/18 21:38 Levemir Vial SQ 15 units HS OLMAN Administration Levothyroxine Sodium 150 mcg 01/26/18 09:15 01/28/18 06:18 Synthroid - PO 150 mcg DAILY@0700 OLMAN Administration Losartan Potassium 50 mg 01/26/18 10:00 01/28/18 09:17 Cozaar - PO 50 mg DAILY OLMAN Administration Magnesium Oxide 400 mg 01/26/18 10:00 01/28/18 09:18 Mag-Ox - PO 400 mg DAILY OLMAN Administration Metoprolol Succinate 25 mg 01/26/18 10:00 01/28/18 09:17 Toprol Xl - PO 25 mg DAILY OLMAN Administration Ondansetron HCl 4 mg 01/26/18 17:19 01/26/18 19:54 Zofran Injection IVPUSH 4 mg Q8H PRN Administration NAUSEA Pantoprazole Sodium 40 mg 01/26/18 10:00 01/28/18 09:19 Protonix - PO 40 mg DAILY OLMAN Administration Polyethylene Glycol 17 gm 01/27/18 10:00 01/28/18 09:20 Miralax (For Daily Use) - PO 17 grams DAILY OLMAN Administration Topiramate 25 mg 01/27/18 22:00 01/28/18 09:17 Topamax - PO 25 mg BID OLMAN Administration Impression 1. Hyponatremia improved 2. HTN 3. CHF 4. nausea and vomiting 5. DM 6. hypothyroid 7. nephrolithiasis Plan - likely hyponatremia from thiazide and GI losses - gentle hydration - repeat bmp in am - pt tolerated diet - would not restart hctz in future. Note topiramate is essentially a diuretic too and can cause kidney stones. Would dc if possible MV
--- NOTE | 2018-01-31 07:45 | DS ---
Physical Examination Vital Signs: Vital Signs Temperature 97.6 F 01/28/18 01:26 Pulse Rate 63 01/28/18 01:26 Respiratory Rate 18 01/28/18 01:26 Blood Pressure 124/64 01/28/18 01:26 O2 Sat by Pulse Oximetry (%) 97 01/27/18 09:15 Constitutional: Yes: Calm Eyes: Yes: EOM Intact Cardiovascular: Yes: Regular Rate and Rhythm Respiratory: Yes: CTA Bilaterally Edema: No Labs: CBC, BMP 01/28/18 06:39 01/28/18 06:39 Discharge Summary Reason For Visit: CHEST PAIN Hospital Course: admitted for severe headache, transient chest pain and nausea,vomiting fecal retention and renal stones on CT serial cardiac enzymes slightly elevated, but down trending, likely cardiac strain, echo reviewed, telemetry [facility] chr. Aflutter-not on AC due to falls head CT negative was found to be hyponatremic likely due to vomiting and HCTZ-HCTZ was stopped, NA replaced. seen by steve.renal-consuts appreciated medically stable to dc home with close f/up stop HCTZ permanently Condition: Stable - Instructions Diet, Activity, Other Instructions: f/up with or Jerome next week. Referrals: Shimon Giraldo MD [Primary Care Provider] - Disposition: HOME - Home Medications Comprehensive Discharge Medication List: Ambulatory Orders Aspirin [ASA -] 81 mg PO DAILY 01/16/16 Clopidogrel Bisulfate [Plavix -] 75 mg PO DAILY 01/16/16 Insulin Glargine,Hum.rec.anlog [Lantus Solostar PEN -] 20 units SQ HS 01/16/16 Levothyroxine [Synthroid -] 150 mcg PO DAILY 01/16/16 Losartan Potassium [Cozaar -] 50 mg PO DAILY 01/16/16 metFORMIN HCL [Metformin HCl] 500 mg PO TID 01/14/17 Atorvastatin Ca [Lipitor] 40 mg PO HS 08/30/17 Alpha Lipoic Acid 200 mg PO DAILY 01/26/18 Ascorbic Acid [Vitamin C -] 500 mg PO BID 01/26/18 Cholecalciferol (Vitamin D3) [Vitamin D3] 2,000 unit PO TID 01/26/18 Cranberry 500 mg PO DAILY 01/26/18 Cyanocobalamin [Vitamin B12 -] 500 mcg PO ASDIR 01/26/18 Flaxseed Oil [Flaxseed] 1,000 mg PO DAILY 01/26/18 Folic Acid 0.8 mg PO BID 01/26/18 Magnesium Oxide [Magnesium] 400 mg PO DAILY 01/26/18 Metoprolol Succinate [Toprol XL -] 25 mg PO DAILY 01/26/18 Pantoprazole Sodium [Protonix -] 40 mg PO DAILY 01/26/18 Ubidecarenone/Vit E Acet [Co Q-10 100 mg Softgel] 1 each PO DAILY 01/26/18 Vit B Comp/C/Folic/Iron/Vit E [Vitamin B Complex Tablet] 1 each PO DAILY Vitamin D3/Vitamin K2 (Mk4) [K2 Plus D3 Tablet] 1 each PO DAILY 01/26/18 Topiramate [Topamax -] 25 mg PO BID #60 tablet 01/28/18
== END 2018-01-28 13:56 | disposition home or self-care (01) | DRG 640 ==
LOC: JER 02:59 → JERBED 05:38 → UNDOADMOB 06:07 → JERBED 06:07 → UNDOADMOB 06:28 → J4W 14:32 → OBSVTOIN 19:18
PROVIDERS: ADMIT Internal Medicine; ATTEND Internal Medicine
DX: E87.1 Hypo-osmolality and hyponatremia (principal); G93.41 Metabolic encephalopathy; I50.33 Acute on chronic diastolic (congestive) heart failure; I48.92 Unspecified atrial flutter; I48.91 Unspecified atrial fibrillation; E78.5 Hyperlipidemia, unspecified; I25.10 Atherosclerotic heart disease of native coronary artery without angina pectoris; M54.5 Low back pain; E66.9 Obesity, unspecified; Z68.30 Body mass index [BMI] 30.0-30.9, adult; R07.89 Other chest pain; K59.00 Constipation, unspecified; N20.0 Calculus of kidney; E87.6 Hypokalemia; E03.9 Hypothyroidism, unspecified; K52.9 Noninfective gastroenteritis and colitis, unspecified; R11.2 Nausea with vomiting, unspecified; E11.42 Type 2 diabetes mellitus with diabetic polyneuropathy; M48.07 Spinal stenosis, lumbosacral region; G43.909 Migraine, unspecified, not intractable, without status migrainosus; I11.0 Hypertensive heart disease with heart failure; Z79.4 Long term (current) use of insulin; Z95.5 Presence of coronary angioplasty implant and graft
CPT/HCPCS: 36415; 70450-TC; 70498-TC; 71045-TC-FY; 74176-TC; 80048; 80053; 81003; 81015; 82436; 82533; 82550; 82607; 82962; 83880; 83930; 83935; 84133; 84300; 84443; 84484; 85025; 85610; 85651; 86140; 93005; 93010; 93306-TC; 99284-25; G0378; J7030; J7620

== ENCOUNTER 2018-06-12 20:44 | Observation (INO) | payer OTHER ==
--- NOTE | 2018-06-12 20:53 | PDOC ---
Rapid Medical Evaluation Chief Complaint: Head/Neck problem Time Seen by Provider: 06/12/18 20:46 Medical Evaluation: Allergies Allergy/AdvReac Type Severity Reaction Status Date / Time No Known Allergies Allergy Verified 06/12/18 20:46 06/12/18 20:47 I have performed a brief in-person evaluation of this patient. The patient presents with a chief complaint of: tripped on shoes- and fell into wall striking head. No LOC, + Eliquis Pertinent physical exam findings: a &O x 3, seems slow to respond I have ordered the following: CT head The patient will proceed to the ED for further evaluation. 06/12/18 20:49 06/12/18 20:51 Discharge Disposition - Diagnosis Head injury - Referrals Referrals: Shimon Giraldo MD [Primary Care Provider] - - Patient Instructions - Post Discharge Activity
--- NOTE | 2018-06-12 21:02 | PDOC ---
Attending Attestation - HPI HPI: 06/12/18 21:05 83F pmhx CAD w/ stents (on eliquis and aspirin) and hematoma in brain s/p fall(in , 2014), afib s/p cardioconversion in 2014, diabetes Pt presents today for evaluation s/p mechanical fall in a small confined area. She reports head pain ranked 8/10 after striking the right frontal area of her head after falling on to the floor with legs twisted, due to her foot slipping from her shoe. Denies loss of consciousness. As per at bedside, patient had a delayed head bleed s/p fall in 2015. Denies neck pain, chest pain, dizziness, or shortness of breath. PCP: Dr. Giraldo <Brendan Alvarez - Last Filed: 06/12/18 21:40> - Resident Resident Name: Hermann Mcgill - ED Attending Attestation I have performed the following: I have examined & evaluated the patient, The case was reviewed & discussed with the resident, I agree w/resident's findings & plan, Exceptions are as noted - Physicial Exam PE: 06/12/18 21:27 GENERAL: The patient is in no acute distress, A&O x 3 . HEAD: Normal with no signs of trauma, no external hematoma seen EYES: PERRLA, EOMI, sclera anicteric, conjunctiva clear. ENT: Ears normal, nares patent, oropharynx clear without exudates. Moist mucous membranes. NECK: Normal range of motion, supple without midline tenderness LUNGS: Breath sounds equal, clear to auscultation bilaterally. HEART:Regular rate and rhythm, normal S1 and S2 without murmur, rub or gallop. ABDOMEN: Soft, nontender, normoactive bowel sounds. EXTREMITIES: Normal range of motion, no edema. NEUROLOGICAL: Cranial nerves II through XII grossly intact. Normal speech. No focal neurological deficits. MUSCULOSKELETAL: Back non-tender to palpation, no CVA tenderness SKIN: Warm, Dry, normal turgor, no rashes or lesions noted. - Medical Decision Making 06/12/18 21:28 83 yo F h/o DM, HTN, Afib s/p ablation, ?recently resumed Eliquis, also on ASA, prior ICH in 2014 Pt s/p mechanical fall with head trauma No LOC or amnesia No nausea or vomiting No neck pain Given prior bleed and head trauma now while on eliquis Will do labs Will place on observation 06/12/18 21:49 EKG - Aflutter rate of 71 bpm, LAD, no st elevation or depression <Genesis Parada - Last Filed: 06/12/18 23:51> *DC/Admit/Observation/Transfer - Discharge Dispostion Decision to Admit order: Yes <Genesis Parada - Last Filed: 06/12/18 23:51> Diagnosis at time of Disposition: Head injury, Closed head injury - Discharge Dispostion Condition at time of disposition: Stable - Referrals Referrals: Shimon Giraldo MD [Primary Care Provider] - - Patient Instructions - Post Discharge Activity Attestations - Attestations Documentation prepared by Brendan Alvarez, acting as medical case manager for Genesis Parada MD. <Brendan Alvarez - Last Filed: 06/12/18 21:40>
--- NOTE | 2018-06-12 21:10 | PDOC ---
History of Present Illness - General Chief Complaint: Head/Neck problem Stated Complaint: HEAD INJURY Time Seen by Provider: 06/12/18 20:46 - History of Present Illness Initial Comments: 06/12/18 21:10 83F with pmh of dm2, quadruple stents on Eliquis, afib and intracranial hemorrage s/p fall presents today to the ED after mechanical fall. She says that she was helping her daughter arrange objects in her apartment when her slipper came lose as she turned to the side which made her fall. She subsequently hit her head on the wall. Her right temporal side of the head is a bit sore. Did not lose consciousness. Denies feeling dizzy or confused. Denies sob, chest pain, dysuria. 06/12/18 23:54 Admitted to obs Past History - Past Medical History Allergies/Adverse Reactions: Allergies Allergy/AdvReac Type Severity Reaction Status Date / Time No Known Allergies Allergy Verified 06/12/18 20:46 Home Medications: Ambulatory Orders Aspirin [ASA -] 81 mg PO DAILY 01/16/16 Clopidogrel Bisulfate [Plavix -] 75 mg PO DAILY 01/16/16 Insulin Glargine,Hum.rec.anlog [Lantus Solostar PEN -] 20 units SQ HS 01/16/16 Levothyroxine [Synthroid -] 150 mcg PO DAILY 01/16/16 Losartan Potassium [Cozaar -] 50 mg PO DAILY 01/16/16 metFORMIN HCL [Metformin HCl] 500 mg PO TID 01/14/17 Atorvastatin Ca [Lipitor] 40 mg PO HS 08/30/17 Alpha Lipoic Acid 200 mg PO DAILY 01/26/18 Ascorbic Acid [Vitamin C -] 500 mg PO BID 01/26/18 Cholecalciferol (Vitamin D3) [Vitamin D3] 2,000 unit PO TID 01/26/18 Cranberry 500 mg PO DAILY 01/26/18 Cyanocobalamin [Vitamin B12 -] 500 mcg PO ASDIR 01/26/18 Flaxseed Oil [Flaxseed] 1,000 mg PO DAILY 01/26/18 Folic Acid 0.8 mg PO BID 01/26/18 Magnesium Oxide [Magnesium] 400 mg PO DAILY 01/26/18 Metoprolol Succinate [Toprol XL -] 25 mg PO DAILY 01/26/18 Pantoprazole Sodium [Protonix -] 40 mg PO DAILY 01/26/18 Ubidecarenone/Vit E Acet [Co Q-10 100 mg Softgel] 1 each PO DAILY 01/26/18 Vit B Comp/C/Folic/Iron/Vit E [Vitamin B Complex Tablet] 1 each PO DAILY Vitamin D3/Vitamin K2 (Mk4) [K2 Plus D3 Tablet] 1 each PO DAILY 01/26/18 Topiramate [Topamax -] 25 mg PO BID #60 tablet 01/28/18 Cardiac Disorders: Yes (afib) COPD: No Diabetes: Yes HTN: Yes Hypercholesterolemia: Yes - Surgical History Cardiac Surgery: Yes (stents x 4) - Suicide/Smoking/Psychosocial Hx Smoking History: Never smoked Have you smoked in the past 12 months: No Hx Alcohol Use: No Drug/Substance Use Hx: No Substance Use Type: None Review of Systems - Review of Systems Able to Perform ROS?: Yes Is the patient limited [place] proficient: No Constitutional: No: Symptoms Reported HEENTM: No: Symptoms Reported Respiratory: No: Symptoms reported Cardiac (ROS): No: Symptoms Reported ABD/GI: No: Symptoms Reported : No: Symptoms Reported Musculoskeletal: No: Symptoms Reported Integumentary: No: Symptoms Reported Neurological: Yes: Headache All Other Systems: Reviewed and Negative *Physical Exam - Vital Signs Last Vital Signs Temp Pulse Resp BP Pulse Ox 98.8 F 67 18 162/95 98 06/12/18 20:47 06/12/18 20:47 06/12/18 20:47 06/12/18 20:47 06/12/18 20:47 - Physical Exam General Appearance: Yes: Nourished, Appropriately Dressed. No: Apparent Distress HEENT: positive: EOMI, JS, Normal ENT Inspection, Other (no hematoma or step offs. ) Respiratory/Chest: positive: Lungs Clear, Normal Breath Sounds. negative: Chest Tender, Respiratory Distress Cardiovascular: positive: Regular Rhythm, Regular Rate, S1, S2 Gastrointestinal/Abdominal: positive: Normal Bowel Sounds, Flat, Soft. negative : Tender Extremity: positive: Normal Capillary Refill, Normal Inspection, Normal Range of Motion, Calf Tenderness Integumentary: positive: Normal Color, Dry Neurologic: positive: Fully Oriented, Alert, Normal Mood/Affect, Normal Response , Motor Strength 5/5 Moderate Sedation - Procedure Monitoring Vital Signs: Procedure Monitoring Vital Signs Temperature 98.8 F 06/12/18 20:47 Pulse Rate 67 06/12/18 20:47 Respiratory Rate 18 06/12/18 20:47 Blood Pressure 162/95 06/12/18 20:47 O2 Sat by Pulse Oximetry (%) 98 06/12/18 20:47 ED Treatment Course - LABORATORY CBC & Chemistry Diagram: 06/12/18 22:40 06/12/18 22:40 Medical Decision Making - Medical Decision Making 06/12/18 22:13 83F on eliquis with closed head injury. Will obtain head ct to r/o acute intracranial bleed and EKG. Will probably admit to obs make sure sure she doesnt have a delayed bleed like last time. *DC/Admit/Observation/Transfer Diagnosis at time of Disposition: Head injury, Closed head injury - Referrals Referrals: Shimon Giraldo MD [Primary Care Provider] - - Patient Instructions - Post Discharge Activity
[2018-06-12 22:48] LABS: BASO % 0.9 % (0-2.0); EOS % 2.3 % (0-4.5); HEMATOCRIT 34.7 % (32.4-45.2); HEMOGLOBIN 12.1 GM/dL (10.7-15.3); LYMPH % 33.7 % (8-40); MCH 32.6 pg (25.7-33.7); MCHC 34.9 g/dl (32.0-36.0); MEAN CELL VOLUME 93.3 fl (80-96); MEAN PLT VOLUME 7.9 fl (7.5-11.1); MONO % 8.9 % (3.8-10.2); NEUT % 54.2 % (42.8-82.8); PLATELET COUNT 194 K/MM3 (134-434); RBC 3.71 M/mm3 (3.60-5.2); RDW 14.1 % (11.6-15.6); WHITE BLOOD COUNT 5.5 K/mm3 (4.0-10.0)
[2018-06-12 23:14] LABS: INR 1.35 (0.83-1.09)
[2018-06-12] MEDS ORDERED: LOSARTAN POTASSIUM 50 MG TABLET (FP) PO ONE (23:23)
[2018-06-12 23:40] LABS: ALBUMIN 3.5 g/dl (3.4-5.0); ALK PHOS 83 U/L (45-117); ANION GAP 9 MMOL/L (8-16); BILIRUBIN,TOTAL 0.4 mg/dL (0.2-1); BLOOD UREA NITROGEN 19 mg/dL (7-18); CHLORIDE 100 mmol/L (98-107); CO2 29 mmol/L (21-32); CREATININE 0.9 mg/dL (0.55-1.3); GLUCOSE,RANDOM 182 mg/dL (74-106); POTASSIUM 4.2 mmol/L (3.5-5.1); SGOT/AST 27 U/L (15-37); SGPT/ALT 38 U/L (13-61); SODIUM 138 mmol/L (136-145); TOT PROT 7.1 g/dl (6.4-8.2)
[2018-06-13] MEDS ORDERED: LEVOTHYROXINE NA 150 MCG TABLET PO SCH (07:00)
[2018-06-13] MEDS: metFORMIN HCL 500 MG TABLET (FP) PO SCH ×2 (08:14→10:50)
[2018-06-13] MEDS ORDERED: POLYETHYLENE GLYCOL 3350 119 GM BTL PO ONE (08:51)
--- NOTE | 2018-06-13 08:57 | HP ---
Admitting History and Physical - Primary Care Physician PCP: Shimon Giraldo - Admission Chief Complaint: fall on ac History of Present Illness: tripped in her shoes and fell at home, hitting the right fronto-temporal area of her head. no LOC, no other injuries. has been on eliquis and asa for past 1-2 months for afib. has h/o fall, gait tends to be shuffling. History Source: Patient Limitations to Obtaining History: No Limitations - Past Medical History Cardiovascular: Yes: AFIB (h/o afib, s/p cardioversion in 2014 not on ac since) , CAD (4 stents, card.cath on 2009, 2014, ), CHF, HTN, Hyperlipdemia Musculoskeletal: Yes: Chronic low back pain Endocrine: Yes: Diabetes Mellitus (insulin dependent for 30 years) - Past Surgical History Past Surgical History: Yes: Appendectomy (1984), Arthrosocopy (rotator cuff repair on left), Cholecystectomy (1989), Hysterectomy (with bso 1984 for fibroid uterus) - Smoking History Smoking history: Never smoked Have you smoked in the past 12 months: No - Alcohol/Substance Use Hx Alcohol Use: No History of Substance Use: reports: None - Social History Usual Living Arrangement: Yes: With Spouse ADL: Independent History of Recent Travel: No Home Medications - Allergies Allergies/Adverse Reactions: Allergies Allergy/AdvReac Type Severity Reaction Status Date / Time No Known Allergies Allergy Verified 06/12/18 20:46 - Home Medications Home Medications: Ambulatory Orders Amitriptyline HCl [Elavil -] 25 mg PO HS 06/13/18 Apixaban [Eliquis -] 5 mg PO DAILY 06/13/18 Ascorbic Acid [C-500] 500 mg PO BID 06/13/18 Aspirin [ASA -] 81 mg PO DAILY 06/13/18 Atorvastatin Calcium 40 mg PO HS 06/13/18 B-Complex with Vitamin C [Super B with Vit C] 1 each PO ASDIR 06/13/18 Cholecalciferol (Vitamin D3) [D-2000] 2,000 unit PO TID 06/13/18 Cyanocobalamin (Vitamin B-12) [Vitamin B-12] 250 mcg PO DAILY 06/13/18 Folic Acid - 800 mg PO BID 06/13/18 Furosemide [Lasix -] 20 mg PO DAILY 06/13/18 Insulin Glargine,Hum.rec.anlog [Lantus (nf)] 1,000 units SQ ASDIR 06/13/18 Iron,Carb/Vit C/Vit B12/Folic [Iron 100 Plus Tablet] 1 each PO DAILY 06/13/18 Levothyroxine [Synthroid -] 150 mcg PO DAILY 06/13/18 Losartan Potassium [Cozaar -] 50 mg PO DAILY 06/13/18 Magnesium Oxide [Magnesium] 400 mg PO DAILY 06/13/18 Metformin HCl [Metformin HCl ER] 500 mg PO TID 06/13/18 Metoprolol Tartrate [Lopressor -] 25 mg PO DAILY 06/13/18 Turmeric [Curcumin] 500 mg MC DAILY 06/13/18 Vitamin D3/Vitamin K2 (Mk4) [K2 Plus D3 Tablet] 1 each PO DAILY 06/13/18 Family Disease History - Family Disease History Family Disease History: [place]: Sister (breast ca), Daughter (breast ca) Review of Systems - Review of Systems Constitutional: reports: No Symptoms Eyes: reports: No Symptoms HENT: reports: No Symptoms Neck: reports: No Symptoms Cardiovascular: reports: No Symptoms Respiratory: reports: No Symptoms Gastrointestinal: reports: No Symptoms Genitourinary: reports: No Symptoms Musculoskeletal: reports: Back Pain, Joint Pain (chronic) Neurological: reports: No Symptoms Physical Examination Vital Signs: Vital Signs Temperature 98.8 F 06/12/18 20:47 Pulse Rate 68 06/13/18 04:51 Respiratory Rate 17 06/13/18 04:51 Blood Pressure 152/78 06/13/18 04:51 O2 Sat by Pulse Oximetry (%) 98 06/13/18 04:51 Constitutional: Yes: Well Nourished, Calm, Obese Eyes: Yes: Conjunctiva Clear, EOM Intact HENT: Yes: Normocephalic Neck: Yes: Trachea Midline Cardiovascular: Yes: Pulse Irregular Respiratory: Yes: Regular, CTA Bilaterally Gastrointestinal: Yes: Normal Bowel Sounds, Soft Musculoskeletal: Yes: Back Pain Extremities: Yes: WNL Edema: No Peripheral Pulses WNL: Yes Integumentary: Yes: WNL Neurological: Yes: WNL, Alert, Oriented, Cran Nerves II-XII Intact Labs: CBC, BMP 06/12/18 22:40 06/12/18 22:40 Imaging - Results Cat Scan: Report Reviewed EKG: Image Reviewed Problem List - Problems (1) Atrial fibrillation and flutter Code(s): I48.91 - UNSPECIFIED ATRIAL FIBRILLATION; I48.92 - UNSPECIFIED ATRIAL FLUTTER (2) Closed head injury Code(s): S09.90XA - UNSPECIFIED INJURY OF HEAD, INITIAL ENCOUNTER Qualifiers: Encounter type: initial encounter Qualified Code(s): S09.90XA - Unspecified injury of head, initial encounter (3) CAD (coronary artery disease) Code(s): I25.10 - ATHSCL HEART DISEASE OF [place] CORONARY ARTERY W/O ANG PCTRS Qualifiers: Coronary Disease-Associated Artery/Lesion type: [place] artery Associated angina: without angina (4) Head trauma Code(s): S09.90XA - UNSPECIFIED INJURY OF HEAD, INITIAL ENCOUNTER (5) IDDM (insulin dependent diabetes mellitus) Code(s): E11.9 - TYPE 2 DIABETES MELLITUS WITHOUT COMPLICATIONS; Z79.4 - SNF (CURRENT) USE OF INSULIN (6) Obesity (BMI 30.0-34.9) Code(s): E66.9 - OBESITY, UNSPECIFIED Assessment/Plan neurochecks repeat head CT if no bleed can dc home and resume asa/eliquis in am cardiology f/up as outpt should also f/up for outpt pt for gait training
[2018-06-13] MEDS ORDERED: FUROSEMIDE 20 MG TABLET (FP) PO SCH (10:00)
[2018-06-13] MEDS ORDERED: LOSARTAN POTASSIUM 50 MG TABLET (FP) PO SCH (10:00)
[2018-06-13] MEDS ORDERED: ASCORBIC ACID 500 MG TABLET (FP) PO SCH (10:00)
[2018-06-13] MEDS ORDERED: METOPROLOL TARTRATE 25 MG TABLET (FP) PO SCH (10:00)
[2018-06-13 15:16] VITALS: BP 131/92; PULSE 92; TEMP 97.8; BMI 31.8
--- NOTE | 2018-06-13 17:01 | EKG ---
Test Reason : Blood Pressure : / mmHG Vent. Rate : 071 BPM Atrial Rate : 326 BPM P-R Int : 000 ms QRS Dur : 084 ms QT Int : 480 ms P-R-T Axes : 000 -48 -02 degrees QTc Int : 521 ms ATRIAL FLUTTER WITH VARIABLE A-V BLOCK LEFT AXIS DEVIATION INFERIOR INFARCT , AGE UNDETERMINED ANTERIOR INFARCT (CITED ON OR BEFORE 26-JAN-2018) ABNORMAL ECG Confirmed by MD GILLIAN, CRISTÓBAL ([id number]) on 06/13/2018 5:01:44 PM Referred By: Confirmed By:CRISTÓBAL FRENCH MD
[2018-06-13] MEDS ORDERED: INSULIN (LEVEMIR) 100 UNITS/ML UNITS SQ SCH (22:00)
[2018-06-13] MEDS ORDERED: AMITRIPTYLINE HCL 25 MG TABLET (FP) PO SCH (22:00)
[2018-06-13] MEDS ORDERED: ATORVASTATIN CA 40 MG TABLET (FP) PO SCH (22:00)
--- NOTE | 2018-06-15 07:25 | DS ---
Physical Examination Vital Signs: Vital Signs Temperature 97.8 F 06/13/18 10:00 Pulse Rate 92 H 06/13/18 10:00 Respiratory Rate 18 06/13/18 10:00 Blood Pressure 131/92 06/13/18 10:00 O2 Sat by Pulse Oximetry (%) 98 06/13/18 04:51 Constitutional: Yes: No Distress, Calm Cardiovascular: Yes: Regular Rate and Rhythm Respiratory: Yes: CTA Bilaterally Edema: No Peripheral Pulses WNL: Yes Neurological: Yes: WNL Labs: CBC, BMP 06/12/18 22:40 06/12/18 22:40 Discharge Summary Reason For Visit: CLOSED HEAD INJURY Hospital Course: Admitted for observation after closed head injury on oral asa and eliquis. repeat head CT no acute injury, neurological status stable. medically stable to dc home with resumption of AC. Condition: Stable - Instructions Diet, Activity, Other Instructions: resume aspirin and eliquis in the am tomorrow Referrals: Shimon Giraldo MD [Primary Care Provider] - Disposition: HOME - Home Medications Comprehensive Discharge Medication List: Ambulatory Orders Amitriptyline HCl [Elavil -] 25 mg PO HS 06/13/18 Apixaban [Eliquis -] 5 mg PO DAILY 06/13/18 Ascorbic Acid [C-500] 500 mg PO BID 06/13/18 Aspirin [ASA -] 81 mg PO DAILY 06/13/18 Atorvastatin Calcium 40 mg PO HS 06/13/18 B-Complex with Vitamin C [Super B with Vit C] 1 each PO ASDIR 06/13/18 Cholecalciferol (Vitamin D3) [D3-2000] 2,000 unit PO TID 06/13/18 Cyanocobalamin (Vitamin B-12) [Vitamin B-12] 250 mcg PO DAILY 06/13/18 Folic Acid - 800 mg PO BID 06/13/18 Furosemide [Lasix -] 20 mg PO DAILY 06/13/18 Insulin Glargine,Hum.rec.anlog [Lantus (10mL VIAL) -] 1,000 units SQ ASDIR 06/13 Iron,Carb/Vit C/Vit B12/Folic [Iron 100 Plus Tablet] 1 each PO DAILY 06/13/18 Levothyroxine [Synthroid -] 150 mcg PO DAILY 06/13/18 Losartan Potassium [Cozaar -] 50 mg PO DAILY 06/13/18 Magnesium Oxide [Magnesium] 400 mg PO DAILY 06/13/18 Metformin HCl [Metformin HCl ER] 500 mg PO TID 06/13/18 Metoprolol Tartrate [Lopressor -] 25 mg PO DAILY 06/13/18 Turmeric [Curcumin] 500 mg MC DAILY 06/13/18 Vitamin D3/Vitamin K2 (Mk4) [K2 Plus D3 Tablet] 1 each PO DAILY 06/13/18
== END 2018-06-13 14:53 | disposition home or self-care (01) ==
LOC: JER 20:44 → JERBED 23:51 → J8W 06-13 06:38
PROVIDERS: ADMIT Internal Medicine; ATTEND Internal Medicine
DX: S09.8XXA Other specified injuries of head, initial encounter (principal); W01.198A Fall on same level from slipping, tripping and stumbling with subsequent striking against other object, initial encounter; Y93.89 Activity, other specified; Y92.038 Other place in apartment as the place of occurrence of the external cause; Y99.8 Other external cause status; I48.91 Unspecified atrial fibrillation; Z79.01 Long term (current) use of anticoagulants; Z79.82 Long term (current) use of aspirin; I25.10 Atherosclerotic heart disease of native coronary artery without angina pectoris; I10 Essential (primary) hypertension; Z95.5 Presence of coronary angioplasty implant and graft; E11.9 Type 2 diabetes mellitus without complications; Z79.4 Long term (current) use of insulin; E66.9 Obesity, unspecified; Z68.31 Body mass index [BMI] 31.0-31.9, adult; Z87.820 Personal history of traumatic brain injury
CPT/HCPCS: 36415; 70450-TC; 80053; 82550; 82962; 84484; 85025; 85610; 93005; 93010; 97116-GP; 97161-GP; 99284-25; G0378

== ENCOUNTER 2019-01-02 15:02 | Emergency (ER) | payer OTHER | END 2019-01-02 21:17 | disposition home or self-care (01) | LOC: JER 15:02 ==

== ENCOUNTER 2019-04-05 16:32 | Emergency (ER) | payer OTHER ==
[2019-04-05 16:40] VITALS: TEMP 98.3; BMI 31.1
--- NOTE | 2019-04-05 16:42 | PDOC ---
Rapid Medical Evaluation Chief Complaint: Headache Time Seen by Provider: 04/05/19 16:37 Medical Evaluation: Allergies Allergy/AdvReac Type Severity Reaction Status Date / Time No Known Allergies Allergy Verified 06/12/18 20:46 04/05/19 16:39 84 year old female with severe headache since yesterday with some dizziness. denies weakness patient is currently on xarelto PE: patient alert ox3. P: labs \ ekg ct head patient to the ER for further management of care. Discharge Disposition - Diagnosis Headache Qualifiers: Headache type: unspecified Headache chronicity pattern: acute headache Intractability: not intractable Qualified Code(s): R51 - Headache - Referrals - Patient Instructions - Post Discharge Activity
[2019-04-05] MEDS ORDERED: ACETAMINOPHEN 1000 MG/100 ML VIAL (NON FORMULARY) IVPB ONE (17:40)
[2019-04-05] MEDS ORDERED: SODIUM CHLORIDE 1,000 ML IV STA (17:40)
--- NOTE | 2019-04-05 17:40 | PDOC ---
History of Present Illness <Rosi Amin - Last Filed: 04/05/19 17:53> - General History Source: Patient, Family Exam Limitations: No Limitations - History of Present Illness Initial Comments: 04/05/19 17:39 Homa Saldana is an 84F with PMH headache, Afib on Xarelto, HTN, IDDM, SDH, chronic OA back pain presents with 2 days of L-sided headache. Patient reports yesterday morning she was getting up from the toilet and started to experience a sudden onset 10/10 L-sided headache that she describes as getting hit in the head with a cinderblock. She used 2 ibuprofens and some hot towels and the headache went away. Today, she was in the exact same situation and the pain started again, prompting her to come to the ED. Has history of headaches at the top of her head, this one is different has not had one in a long time, but used to see a Neurologist and has had an MRI, formerly on topiramate. Denies weakness, slurred speech, changes to vision, N/V, dizziness, difficulty walking. Denies SOB, palpitations, C/D, urinary sx. Reports some new anterior pain under her ribs. PSH: appy, maddie, hyst <Alexander Freeman - Last Filed: 04/06/19 00:01> - General Chief Complaint: Headache Stated Complaint: HEADACHE Time Seen by Provider: 04/05/19 16:37 Past History <Rosi Amin - Last Filed: 04/05/19 17:53> - Past Medical History Cardiac Disorders: Yes (afib) COPD: No Diabetes: Yes HTN: Yes Hypercholesterolemia: Yes Thyroid Disease: Yes - Surgical History Cardiac Surgery: Yes (stents x 4) - Immunization History Immunization Up to Date: Yes - Psycho Social/Smoking Cessation Hx Smoking History: Never smoked Have you smoked in the past 12 months: No Information on smoking cessation initiated: No Hx Alcohol Use: No Drug/Substance Use Hx: No Substance Use Type: None <Alexander Freeman - Last Filed: 04/06/19 00:01> - Past Medical History Allergies/Adverse Reactions: Allergies Allergy/AdvReac Type Severity Reaction Status Date / Time No Known Allergies Allergy Verified 04/05/19 16:40 Home Medications: Ambulatory Orders Amitriptyline HCl [Elavil -] 25 mg PO HS 06/13/18 Apixaban [Eliquis -] 5 mg PO DAILY 06/13/18 Ascorbic Acid [C-500] 500 mg PO BID 06/13/18 Aspirin [ASA -] 81 mg PO DAILY 06/13/18 Atorvastatin Calcium 40 mg PO HS 06/13/18 B-Complex with Vitamin C [Super B with Vit C] 1 each PO ASDIR 06/13/18 Cholecalciferol (Vitamin D3) [D3-2000] 2,000 unit PO TID 06/13/18 Cyanocobalamin (Vitamin B-12) [Vitamin B-12] 250 mcg PO DAILY 06/13/18 Folic Acid - 800 mg PO BID 06/13/18 Furosemide [Lasix -] 20 mg PO DAILY 06/13/18 Insulin Glargine,Hum.rec.anlog [Lantus (10mL VIAL) -] 1,000 units SQ ASDIR 06/13 Iron,Carb/Vit C/Vit B12/Folic [Iron 100 Plus Tablet] 1 each PO DAILY 06/13/18 Levothyroxine [Synthroid -] 150 mcg PO DAILY 06/13/18 Losartan Potassium [Cozaar -] 50 mg PO DAILY 06/13/18 Magnesium Oxide [Magnesium] 400 mg PO DAILY 06/13/18 Metoprolol Tartrate [Lopressor -] 25 mg PO DAILY 06/13/18 Turmeric [Curcumin] 500 mg MC DAILY 06/13/18 Vitamin D3/Vitamin K2 (Mk4) [K2 Plus D3 Tablet] 1 each PO DAILY 06/13/18 metFORMIN HCL [Metformin ER Osmotic] 500 mg PO TID 06/13/18 Cyclobenzaprine HCl [Flexeril -] 10 mg PO HS #7 tablet 01/02/19 Lidocaine 5% Patch [Lidoderm Patch -] 1 patch TP DAILY #7 patch 01/02/19 Naproxen 375 mg PO DAILY PRN #5 tablet 01/02/19 Review of Systems - Review of Systems Able to Perform ROS?: Yes Is the patient limited Bulgarian proficient: No Constitutional: No: Chills, Fever, Loss of Appetite, Weakness HEENTM: No: Double Vision, Tinnitus, Hearing Loss, Throat Pain Respiratory: No: Cough, Shortness of Breath Cardiac (ROS): No: Chest Pain, Irregular Heart Rate, Lightheadedness, Palpitations, Syncope ABD/GI: No: Constipated, Diarrhea, Nausea, Vomiting : No: Burning, Dysuria, Discharge, Frequency, Flank Pain, Hematuria, Incontinence, Pain Musculoskeletal: No: Symptoms Reported Integumentary: No: Symptoms Reported Neurological: Yes: Headache. No: Numbness, Paresthesia, Weakness, Unsteady Gait Endocrine: No: Symptoms Reported Hematologic/Lymphatic: No: Symptoms Reported All Other Systems: Reviewed and Negative <Alexander Freeman - Last Filed: 04/06/19 00:01> *Physical Exam - Vital Signs Last Vital Signs Temp Pulse Resp BP Pulse Ox 98.3 F 62 18 115/62 95 04/05/19 16:35 04/05/19 16:35 04/05/19 16:35 04/05/19 16:35 04/05/19 16:35 <Rosi Amin - Last Filed: 04/05/19 17:53> - Vital Signs Last Vital Signs Temp Pulse Resp BP Pulse Ox 98.3 F 62 18 115/62 95 04/05/19 16:35 04/05/19 16:35 04/05/19 16:35 04/05/19 16:35 04/05/19 16:35 - Physical Exam General Appearance: Yes: Nourished, Appropriately Dressed. No: Apparent Distress HEENT: positive: EOMI, JS, Normal Voice, Symmetrical, Pharynx Normal. negative: Scleral Icterus (R), Scleral Icterus (L), Muffled/Hoarse voice, Pharyngeal Erythema, Tonsillar Exudate Neck: positive: Trachea midline, Normal Thyroid, Supple. negative: Tender, Lymphadenopathy (R), Lymphadenopathy (L) Respiratory/Chest: positive: Lungs Clear, Normal Breath Sounds. negative: Chest Tender, Respiratory Distress, Accessory Muscle Use, Crackles, Rales, Rhonchi Cardiovascular: positive: Regular Rhythm, Regular Rate. negative: Murmur, Tachycardia Gastrointestinal/Abdominal: positive: Normal Bowel Sounds, Tender (tenderness to palpation of anterior costal margin), Soft. negative: Guarding, Rebound Musculoskeletal: positive: Normal Inspection. negative: CVA Tenderness Extremity: positive: Normal Capillary Refill, Normal Inspection, Normal Range of Motion. negative: Tender Integumentary: positive: Normal Color, Dry, Warm Neurologic: positive: gravel weigher II-XII NML intact, Fully Oriented, Alert, Normal Mood/ Affect, Normal Response, Motor Strength 5/5 <Alexander Freeman - Last Filed: 04/06/19 00:01> ED Treatment Course - RADIOLOGY Radiology Studies Ordered: Category Date Time Status CXRPORT [CHEST X-RAY PORTABLE*] [RAD] Stat Radiology 04/05/19 17:52 Ordered <Rosi Amin - Last Filed: 04/05/19 17:53> - LABORATORY CBC & Chemistry Diagram: 04/05/19 18:00 04/05/19 19:35 <Alexander Freeman - Last Filed: 04/06/19 00:01> Medical Decision Making - Medical Decision Making 04/05/19 17:39 Homa Saldana is an 84F with PMH headache, Afib on Xarelto, HTN, IDDM, SDH, chronic OA back pain presents with 2 days of L-sided headache. Patient is HDS, A/O x 4, has no neurological deficits or signs of CVA, and headache resolves with conservative management, making an acute, life- threatening process such as ICH less likely. However, on Xarelto and has new onset headache, concerning for spontaneous bleed until proven otherwise. No fever or neck stiffness concerning for meningitis. Most likely new migraine vs. normal headache. Will evaluate with: ECG CXR CBC CMP CP Coags CT head non-contrast UA/UC Giving 1000mg Ofirmev, 1L NS, and 10mg Reglan IV for SIMENTAL. 04/05/19 19:41 Evaluating for rib pain with CXR. 04/05/19 20:13 No evidence of acute pathology of CXR. No acute IC pathology on CT head. Pending labs ECG shows atrial fibrillation T wave abnormalities consistent with prior ECG. Patient re-evaluated, sitting comfortably in bed speaking in full sentences playing cards with daughter at bedside, no acute distress. 04/05/19 20:15 All labs WNL, troponins <0.02, no concerning electrolyte abnormalities notable. Good to discharge home with neuro and cards f/u for better characterization and evaluation of headache. <Alexander Freeman - Last Filed: 04/06/19 00:01> Discharge <Rosi Amin - Last Filed: 04/05/19 17:53> - Discharge Information Problems reviewed: Yes <Alexander Freeman - Last Filed: 04/06/19 00:01> - Discharge Information Clinical Impression/Diagnosis: Rib pain Headache Qualifiers: Headache type: unspecified Headache chronicity pattern: acute headache Intractability: not intractable Qualified Code(s): R51 - Headache Condition: Stable Disposition: HOME - Follow up/Referral Referrals: Tee Velasquez MD [Staff Physician] - Getachew Hong MD [Primary Care Provider] - Keron Solis MD [Staff Physician] - Glenys Griffin MD [Staff Physician] - - Patient Discharge Instructions Patient Printed Discharge Instructions: DI for Headache Additional Instructions: Today you were evaluated for a new left side headache. We got a CT scan of your brain that does not show any masses or bleeding inside your head that could be causing your headache. We also got blood labs that were all normal. Unfortunately, we do not have a good reason why you are suddenly having terrible headaches, but we have ruled out the most concerning causes. Please see your home gaming manager in the next week. We have included a referral to a neurologist, Dr. Griffin, for further follow-up for your headaches. If you prefers a different neurologist, feel free to see that physician as long as you see them within the next week. If ibuprofen and hot towels worked for your headache, feel free to do so again. Tylenol is better than ibuprofen for kidneys and can be used as a substitute. Please see your primary doctor in the next 3 days for further care. If you experience another strong headache that is not controllable, weakness, changes to your vision, seizures, dizziness, nausea, vomiting, or any other new or concerning symptoms, please return to the closest emergency room. - Post Discharge Activity
[2019-04-05] MEDS ORDERED: METOCLOPRAMIDE HCL INJECTION 10 MG/2 ML VIAL IVPB ONE (18:08)
[2019-04-05] MEDS ORDERED: METOCLOPRAMIDE HCL INJECTION 10 MG/2 ML VIAL ONE (18:13)
[2019-04-05] MEDS ORDERED: ACETAMINOPHEN INJECTION 100 ML IVPB ONE (18:14)
[2019-04-05 18:19] LABS: BASO % 0.7 % (0-2.0); EOS % 1.7 % (0-4.5); LYMPH % 19.3 % (8-40); MCH 30.9 pg (25.7-33.7); MCHC 33.2 g/dl (32.0-36.0); MEAN CELL VOLUME 93.1 fl (80-96); MEAN PLT VOLUME 8.2 fl (7.5-11.1); MONO % 7.2 % (3.8-10.2); NEUT % 71.1 % (42.8-82.8); PLATELET COUNT 193 K/MM3 (134-434); RBC 3.87 M/mm3 (3.60-5.2); RDW 15.7 % (11.6-15.6); WHITE BLOOD COUNT 7.1 K/mm3 (4.0-10.0)
--- NOTE | 2019-04-05 18:40 | PDOC ---
Documentation entered by Marcia Champion SCRIBE, acting as scribe for Aracelis Chirinos DO. Aracelis Chirinos DO: This documentation has been prepared by the angieibpaco, Marcia Champion SCRIBE, under my direction and personally reviewed by me in its entirety. I confirm that the documentation accurately reflects all work, treatment, procedures, and medical decision making performed by me. Attending Attestation - Resident Resident Name: Chato Stevens - ED Attending Attestation I have performed the following: I have examined & evaluated the patient, The case was reviewed & discussed with the resident, I agree w/resident's findings & plan, Exceptions are as noted - HPI HPI: 04/05/19 19:07 The patient is an 84-year-old female with a past medical history significant for Afib (on Xarelto), HTN, HLD, DM, CAD s/p Stents who presents to the emergency department with a left-sided headache. The patient presents with left- sided headache, which has since resolved with Ibuprofen and hot towels. The patient reports she was sitting down on the toilet, when she stood up, she felt on the onset of left-sided headache. The patient reports after taking the medication and using the hot towel the pain has resolved, however, she felt off- balance. Denies relief with Tylenol. Denies numbness, tingling, tinnitus, sore throat, cough, congestion, nausea, vomiting. Denies chest pain, shortness of breath, or palpitations. Allergies: NKDA PCP: Dr. Hong - Physicial Exam PE: 04/05/19 19:08 Constitutional: Awake, alert, oriented. No acute distress. Head: Normocephalic. Atraumatic Eyes: PERRL. EOMI. Conjunctivae are not pale. ENT: Mucous membranes are moist and intact. Posterior pharynx without exudate or erythema. Uvula midline. Neck: Supple. Full ROM. No lymphadenopathy. Cardiovascular: Irregularly irregular. Pulmonary/Chest: No evidence of respiratory distress. Clear to auscultation bilaterally No wheezing, rales or rhonchi. Abdominal: Soft and nondistended. There is no tenderness. No rebound, guarding or rigidity. Back: No CVA tenderness. Musculoskeletal: No edema. No cyanosis. No clubbing. Full range of motion in all extremities. Nocalf tenderness. Skin: Skin is warm and dry. No petechiae. No purpura. Neurological: Alert and oriented to person, place, and time. Cranial nerves II -XII are grossly intact. Normal speech. Normal heel to casas. Strength is grossly symmetric. No sensory deficits. Psychiatric: Good eye contact. Normal interaction, affect and behavior. - Medical Decision Making 04/05/19 18:32 I, Dr. Aracelis Chirinos, DO, attest that this document has been prepared under my direction and personally reviewed by me in its entirety. I further attest, that it accurately reflects all work, treatment, procedures and medical decision -making performed by me. a/p: 84yo female with 2 days of L sided stabbing mathis that resolves with ibuprofen and hot towels -states both episodes happened when she stood up from the toilet -states after mathis resolved she developed intermittent dizziness - not vertigo but felt lightheaded -denies tinnitus, ear pain, rhinorrhea, neck pain, sore throat, cp/sob, no abd pain, no n/v/d -pt neuro intact -no mathis at this time -no dysuria -pt however with hx of falls on xarelto -denies falls -will send labs, ekg, cxr, head ct -will give ivf hydration 04/05/19 19:01 cxr without acute findings labs pending 04/05/19 19:01 wbc normal hgb stable 04/05/19 20:01 no acute findings on head ct 04/05/19 20:39 labs reviewed pt feeling better playing cards with her family no acute findings on head ct or cxr will give neuro for follow up stable for dc to home and follow up with her PMD and a neurologist Heart Score/ECG Review - ECG Intrepretation Comment:: 04/05/19 18:31 afib at 57, l axis, q waves septally which are age indeterminate, poor r wave progression, q waves septally which are age indeterminate
[2019-04-05 18:50] LABS: INR 2.64 (0.83-1.09); PROTHROMBIN TIME (PATIENT) 31.5 SEC (9.7-13.0)
[2019-04-05 20:16] LABS: ALBUMIN 3.2 g/dl (3.4-5.0); BILIRUBIN,TOTAL 0.3 mg/dL (0.2-1); BLOOD UREA NITROGEN 34.5 mg/dL (7-18); POTASSIUM 3.9 mmol/L (3.5-5.1); TOT PROT 6.2 g/dl (6.4-8.2)
[2019-04-05 22:45] VITALS: BP 122/65; PULSE 66
--- NOTE | 2019-04-06 14:11 | EKG ---
Test Reason : Blood Pressure : / mmHG Vent. Rate : 056 BPM Atrial Rate : 036 BPM P-R Int : 000 ms QRS Dur : 080 ms QT Int : 418 ms P-R-T Axes : 000 -47 037 degrees QTc Int : 403 ms ATRIAL FLUTTER WITH VARIABLE A-V BLOCK LEFT AXIS DEVIATION INFERIOR INFARCT (CITED ON OR BEFORE 12-JUN-2018) POSSIBLE ANTERIOR INFARCT (CITED ON OR BEFORE 26-JAN-2018) ABNORMAL ECG Confirmed by KELLEN BUITRAGO MD ([id number]) on 04/06/2019 2:11:03 PM Referred By: Confirmed By:KELLEN BUITRAGO MD
== END 2019-04-05 21:10 | disposition home or self-care (01) ==
LOC: JER 16:32
PROC: 3E0337Z Introduction of Electrolytic and Water Balance Substance into Peripheral Vein, Percutaneous Approach (ICD-10-PCS; principal; 2019-04-05)
PROC: 3E033NZ Introduction of Analgesics, Hypnotics, Sedatives into Peripheral Vein, Percutaneous Approach (ICD-10-PCS; 2019-04-05)
PROC: 3E033GC Introduction of Other Therapeutic Substance into Peripheral Vein, Percutaneous Approach (ICD-10-PCS; 2019-04-05)
DX: R51 Headache (principal); R07.89 Other chest pain; I25.10 Atherosclerotic heart disease of native coronary artery without angina pectoris; I10 Essential (primary) hypertension; Z95.5 Presence of coronary angioplasty implant and graft; I48.91 Unspecified atrial fibrillation; Z79.01 Long term (current) use of anticoagulants; E11.9 Type 2 diabetes mellitus without complications; Z79.4 Long term (current) use of insulin; E78.00 Pure hypercholesterolemia, unspecified; M19.90 Unspecified osteoarthritis, unspecified site; Z86.73 Personal history of transient ischemic attack (TIA), and cerebral infarction without residual deficits
CPT/HCPCS: 36415; 70450-TC; 71045-TC-FY; 80053; 82550; 84484; 85025; 85610; 93005; 93010; 99283-25; J0131; J7030

== ENCOUNTER 2020-12-21 01:12 | Emergency (ER) | payer OTHER ==
[2020-12-21 01:28] VITALS: BP 159/83; PULSE 73; TEMP 97.6; BMI 28.3
[2020-12-21] MEDS ORDERED: URSODIOL 300 MG CAPSULE PO ONE (02:00)
== END 2020-12-21 03:41 | disposition home or self-care (01) ==
LOC: JER 01:12
DX: L29.8 Other pruritus (principal)
CPT/HCPCS: 99283-25